=== PATIENT | male | born 1935 | race Caucasian/White ===

== ENCOUNTER 2017-02-17 10:57 | Observation (INO) ==
--- NOTE | 2017-02-17 11:39 | Emergency Department Note ---
Disposition Clinical Impression: MORA (dyspnea on exertion), Atrial fibrillation with RVR, History of pulmonary fibrosis Right lower lobe pneumonia Qualifiers: Pneumonia type: due to unspecified organism Qualified Code(s): J18.1 - Lobar pneumonia, unspecified organism Sepsis Qualifiers: Sepsis type: sepsis due to unspecified organism Qualified Code(s): A41.9 - Sepsis, unspecified organism Disposition: Admitted As Inpatient Condition: Fair Time of Disposition: 15:47 SOB HPI - General Chief Complaint: ED Shortness of Breath/Dyspnea Stated Complaint: Fever, cough, Time Seen by Provider: 02/17/17 11:11 Source: patient, family Limitations: no limitations Nursing Notes Reviewed: Yes Vital Signs Reviewed: Yes - History of Present Illness Patient's a 81-year-old male complains of acute onset of cough congestion times a week with worsening dyspnea on exertion and hypoxia with exertion. Patient has a history of pulmonary fibrosis, bladder cancer, prostate cancer status post prostatectomy. Patient's eyes DrHeidi Resendiz 2 days ago was placed on levofloxacin as taken 2 doses past 2 days but feels worse today. Patient states his O2 sats dropping to 84% if he is off his oxygen when he tries to move around. Patient states had to increase his oxygen from 2 L 3 L to maintain O2 sats at 92-94%. Patient reports having fevers of 102 degrees Fahrenheit. Patient states had fever this morning but took Advil. No recent surgeries or significant illnesses or hospitalizations within the past 6 months - Related Data Home Medications Medication Instructions Recorded Confirmed Aspirin Enteric Coated [Aspirin EC] 81 mg PO DAILY 02/17/17 02/17/17 Atenolol [Tenormin] 25 mg PO BID 02/17/17 02/17/17 Erythromycin OPTH Oint 1 appl OP QID 02/17/17 02/17/17 Ibuprofen [Advil] 200 mg PO Q6H PRN 02/17/17 02/17/17 Levofloxacin [Levaquin] 750 mg PO DAILY 02/17/17 02/17/17 Omeprazole [PriLOSEC] 20 mg PO DAILY 02/17/17 02/17/17 Oxygen 3 l NS AD 02/17/17 02/17/17 Sodium Chloride 5% OPTH Oint 1 appl OP HS 02/17/17 02/17/17 [[id number]] Allergies Allergy/AdvReac Type Severity Reaction Status Date / Time Sulfa (Sulfonamide Allergy Anaphylaxis Verified 02/17/17 11:03 Antibiotics) vancomycin Allergy Anaphylaxis Verified 02/17/17 11:03 metoprolol AdvReac See Verified 02/17/17 16:48 Comments All systems ED: reviewed and negative except as stated. Constitutional: Reports: fever Eyes: Denies: eye pain, vision change ENT ED: Reports: congestion Cardiovascular: Reports: chest pain (With coughing) Respiratory: Reports: cough, sputum production Gastrointestinal: Reports: nausea, vomiting. Denies: abdominal pain, diarrhea Genitourinary: Denies: urgency, dysuria, frequency, hematuria Musculoskeletal: Denies: back pain Neurological: Denies: confusion Endocrine: Reports: fatigue Past Medical History - Past Medical History Attestation: Yes The following information was validated with the patient. Source: patient Medical history: Reports: cancer (Prostate and bladder), other - Social History Smoking Status: Never smoker Smokeless Tobacco Status: No Alcohol use: Reports: none Drug use: Reports: none Physical Exam - General Limitations: no limitations General appearance: alert, in no apparent distress - Head Head exam: atraumatic, normocephalic, normal inspection - Eye Eye exam: Present: normal appearance (Right eye normal appearing, left eye abnormal. Patient blind in left eye), EOMI. Absent: PERRL, scleral icterus, conjunctival injection, nystagmus - ENT ENT exam: normal exam, normal oropharynx, mucous membranes dry - Neck Neck exam: Present: normal inspection, full ROM, trachea midline. Absent: tenderness, meningismus, lymphadenopathy - Chest Chest inspection: Present: normal inspection, symmetric chest wall rise. Absent : tenderness - Respiratory Respiratory exam: Present: wheezes, other (Bilateral lower lung jean sound like Velcro coming apart). Absent: normal lung sounds bilaterally, respiratory distress - Cardiovascular Cardiovascular exam: Present: tachycardia, irregular rhythm - Abdominal Exam Abdominal exam: Present: soft, Non-Tender. Absent: distention, guarding, rebound, rigidity - Extremities Exam Extremities exam: Present: normal inspection, full ROM, normal capillary refill. Absent: tenderness, pedal edema - Back Exam Back exam: Present: normal inspection, full ROM, paraspinal tenderness (Lower lumbar paraspinal ). Absent: tenderness, CVA tenderness (R), CVA tenderness (L) - Neurological Exam Neurological exam: Present: alert, oriented X3, CN II-XII intact. Absent: motor sensory deficit - Psychiatric Psychiatric exam: Present: normal affect - Skin Skin exam: Present: warm, dry, intact, normal color Course - Reevaluation(s) Reevaluation #1: Assessment: Sepsis secondary to pneumonia, exacerbation of pulmonary fibrosis, ACS/MO, PE. Plan: Sepsis workup, cardiac workup. Time: 11:12 Reevaluation #2: Patient received DuoNeb therapy and has improved lung sounds still has velcro sounding lower lung jean. Time: 11:40 Reevaluation #3: Patient reports that he is comfortable right now. Awaiting lab results Time: 12:18 Additional Reevaluation(s): 1300 hrs: Cultures have been drawn and patient is started on Zosyn and levofloxacin. 1300: Patient sent for CTA to assess for pulmonary embolism. 1440hrs: CTA negative for PE. Patient took his home medications morning and presented with a normal heart rate but progressed into A. fib RVR. Patient's heart rate came down to 110 on its own. Plan to monitor patient's heart rate before adding any medications since patient currently asymptomatic and may just be a byproduct of his DuoNeb therapy. 1504: Patient's heart rate increasing. Spoke to hospitalist Dr. Dueñas recommended during conversation for admittance given multiple doses of medication. I ordered 25 mg atenolol. After seeing the patient Dr. Dueñas asked to start patient on Lopressor 5 mg as his heart rate went up during her assessment into the 130s. Switched to atenolol for Lopressor. Patient states that he had an adverse reaction of uncontrolled heart rate after taking Lopressor. Plan to give patient Cardizem instead 20 mg IV. 1610 hrs.: Patient's heart rate returned to normal rate before administration of Cardizem. Will hold Cardizem Patient currently has no complaints. - Consultations Consultation #1: Dr. Dueñas has accepted for admission 1504 hrs Time: 15:04 Vital Signs Temperature 98.4 F 02/17/17 11:03 Pulse Rate 88 02/17/17 11:03 Respiratory Rate 16 02/17/17 11:03 Blood Pressure 97/61 02/17/17 11:03 O2 Sat by Pulse Oximetry 94 02/17/17 11:03 Temperature 98.4 F 02/17/17 11:03 Pulse Rate 85 02/17/17 15:57 Respiratory Rate 18 02/17/17 16:39 Blood Pressure 134/71 02/17/17 16:39 O2 Sat by Pulse Oximetry 97 02/17/17 15:57 Oxygen Delivery Oxygen Delivery Nasal Cannula Shortness of Breath/Dyspnea - Medical Records Medical records reviewed: Yes I reviewed the patient's medical records. - Lab Data Lab results reviewed: Yes I reviewed the patient's lab results. Lab results narrative: Short CBC 02/17/17 Range/Units 11:34 WBC 7.6 (4.3-11.1) K/mcL Hgb 15.5 (12.9-16.9) g/dL Hct 46.7 (37.5-50.1) % Plt Count 182 (140-400) K/mcL Neutrophils # 6.0 (1.6-8.9) K/mcL BMP 02/17/17 Range/Units 11:34 Sodium 136 (136-145) mEq/L Potassium 3.7 (3.5-4.5) mEq/L Chloride 100 (98-109) mEq/L Carbon Dioxide 27 (19-29) mEq/L BUN 25 (8-26) mg/dL Creatinine 1.15 (0.72-1.25) mg/dL Glucose 123 H (70-99) mg/dL Calcium 9.1 (8.6-10.8) mg/dL Cardiac Enzymes 02/17/17 Range/Units 11:34 Troponin I 0.02 (0-0.03) ng/mL Liver Function 02/17/17 Range/Units 11:34 Total Bilirubin 0.7 (0.2-1.2) mg/dL Direct Bilirubin 0.3 (0.0-0.5) mg/dL AST 33 (5-34) Units/L ALT 22 (0-55) Units/L Alkaline Phosphatase 63 (38-126) Units/L Albumin 3.9 (3.5-5.0) g/dL Urine 02/17/17 Range/Units 12:09 Urine Color Yellow (Yellow) Urine Clarity Cloudy A (Clear) Urine pH 6.0 (5.0-8.0) pH Units Ur Specific [place] 1.028 H (1.010-1.025) Urine Protein 30 H (Neg-Trace) mg/dL Urine Glucose (UA) Normal (Normal) mg/dL Result diagrams: 02/17/17 11:34 02/17/17 11:34 Lab Results 02/17/17 02/17/17 02/17/17 Range/Units 11:34 11:34 11:34 WBC 7.6 (4.3-11.1) K/mcL RBC 5.17 (4.19-5.50) M/mcL Hgb 15.5 (12.9-16.9) g/dL Hct 46.7 (37.5-50.1) % MCV 90.3 (83.0-100.0) fL MCH 30.0 (28.0-33.3) pg MCHC 33.2 (31.6-35.5) g/dL RDW 12.9 (11.5-14.5) % Plt Count 182 (140-400) K/mcL MPV 9.1 L (9.4-12.4) fL Immature Gran % 0.3 (0-4) % Seg Neutrophils % 78.2 % Lymphocytes % 7.8 % Monocytes % 12.9 % Eosinophils % 0.5 % Basophils % 0.3 % Neutrophils # 6.0 (1.6-8.9) K/mcL Lymphocytes # 0.6 (0.6-4.6) K/mcL Monocytes # 1.0 (0.0-1.3) K/mcL Eosinophils # 0.0 (0.0-0.6) K/mcL Basophils # 0.0 (0.0-0.2) K/mcL PT 13.5 H (9.4-12.1) Seconds INR 1.2 APTT 29.3 (26.0-36.0) Seconds ABG pH (7.32-7.45) pH Units ABG pCO2 (35-45) mmHg ABG pO2 (85-104) mmHg ABG HCO3 (21-27) mEQ/L ABG Total CO2 (20-26) mEq/L ABG O2 Saturation (95-98) % ABG Base Excess (-2.0 to 3.0) mEq/L Blood Gas Modality Inspired O2 % Sodium 136 (136-145) mEq/L Potassium 3.7 (3.5-4.5) mEq/L Chloride 100 (98-109) mEq/L Carbon Dioxide 27 (19-29) mEq/L BUN 25 (8-26) mg/dL Creatinine 1.15 (0.72-1.25) mg/dL Est GFR ( Amer) > 60 (> 60) Est GFR (Non-Af Amer) > 60 (> 60) BUN/Creatinine Ratio 22 (6-26) Glucose 123 H (70-99) mg/dL Calculated Osmolality 288 (280-300) Lactic Acid (0.5-2.2) mmol/L Calcium 9.1 (8.6-10.8) mg/dL Phosphorus 2.6 (2.3-4.7) mg/dL Magnesium 1.9 (1.6-2.6) mg/dL Total Bilirubin 0.7 (0.2-1.2) mg/dL Direct Bilirubin 0.3 (0.0-0.5) mg/dL Indirect Bilirubin 0.4 (0.0-1.2) mg/dL AST 33 (5-34) Units/L ALT 22 (0-55) Units/L Alkaline Phosphatase 63 (38-126) Units/L Troponin I (0-0.03) ng/mL B-Natriuretic Peptide (0-100) pg/mL Serum Total Protein 7.9 (6.0-8.3) g/dL Albumin 3.9 (3.5-5.0) g/dL Globulin 4.0 H (2.4-3.5) g/dL Albumin/Globulin Ratio 1.0 L (1.1-2.2) Urine Color (Yellow) Urine Clarity (Clear) Urine pH (5.0-8.0) pH Units Ur Specific [place] (1.010-1.025) Urine Protein (Neg-Trace) mg/dL Urine Glucose (UA) (Normal) mg/dL Urine Ketones (Negative) mg/dL Urine Blood (Negative) Urine Nitrite (Negative) Urine Bilirubin (Negative) Urine Urobilinogen (Normal) mg/dL Ur Leukocyte Esterase (Negative) Urine Microscopic RBC (0-3) per hpf Urine Microscopic WBC (0-3) per hpf Ur Squamous Epith Cells (None-Few) per lpf Urine Bacteria (None-Few) per hpf Hyaline Casts (None-Few) per lpf Ur Culture Indicated? (NO) 02/17/17 02/17/17 02/17/17 Range/Units 11:34 11:34 11:34 WBC (4.3-11.1) K/mcL RBC (4.19-5.50) M/mcL Hgb (12.9-16.9) g/dL Hct (37.5-50.1) % MCV (83.0-100.0) fL MCH (28.0-33.3) pg MCHC (31.6-35.5) g/dL RDW (11.5-14.5) % Plt Count (140-400) K/mcL MPV (9.4-12.4) fL Immature Gran % (0-4) % Seg Neutrophils % % Lymphocytes % % Monocytes % % Eosinophils % % Basophils % % Neutrophils # (1.6-8.9) K/mcL Lymphocytes # (0.6-4.6) K/mcL Monocytes # (0.0-1.3) K/mcL Eosinophils # (0.0-0.6) K/mcL Basophils # (0.0-0.2) K/mcL PT (9.4-12.1) Seconds INR APTT (26.0-36.0) Seconds ABG pH (7.32-7.45) pH Units ABG pCO2 (35-45) mmHg ABG pO2 (85-104) mmHg ABG HCO3 (21-27) mEQ/L ABG Total CO2 (20-26) mEq/L ABG O2 Saturation (95-98) % ABG Base Excess (-2.0 to 3.0) mEq/L Blood Gas Modality Inspired O2 % Sodium (136-145) mEq/L Potassium (3.5-4.5) mEq/L Chloride (98-109) mEq/L Carbon Dioxide (19-29) mEq/L BUN (8-26) mg/dL Creatinine (0.72-1.25) mg/dL Est GFR ( Amer) (> 60) Est GFR (Non-Af Amer) (> 60) BUN/Creatinine Ratio (6-26) Glucose (70-99) mg/dL Calculated Osmolality (280-300) Lactic Acid 2.1 (0.5-2.2) mmol/L Calcium (8.6-10.8) mg/dL Phosphorus (2.3-4.7) mg/dL Magnesium (1.6-2.6) mg/dL Total Bilirubin (0.2-1.2) mg/dL Direct Bilirubin (0.0-0.5) mg/dL Indirect Bilirubin (0.0-1.2) mg/dL AST (5-34) Units/L ALT (0-55) Units/L Alkaline Phosphatase (38-126) Units/L Troponin I 0.02 (0-0.03) ng/mL B-Natriuretic Peptide 68 (0-100) pg/mL Serum Total Protein (6.0-8.3) g/dL Albumin (3.5-5.0) g/dL Globulin (2.4-3.5) g/dL Albumin/Globulin Ratio (1.1-2.2) Urine Color (Yellow) Urine Clarity (Clear) Urine pH (5.0-8.0) pH Units Ur Specific [place] (1.010-1.025) Urine Protein (Neg-Trace) mg/dL Urine Glucose (UA) (Normal) mg/dL Urine Ketones (Negative) mg/dL Urine Blood (Negative) Urine Nitrite (Negative) Urine Bilirubin (Negative) Urine Urobilinogen (Normal) mg/dL Ur Leukocyte Esterase (Negative) Urine Microscopic RBC (0-3) per hpf Urine Microscopic WBC (0-3) per hpf Ur Squamous Epith Cells (None-Few) per lpf Urine Bacteria (None-Few) per hpf Hyaline Casts (None-Few) per lpf Ur Culture Indicated? (NO) 02/17/17 02/17/17 02/17/17 Range/Units 12:09 12:10 13:16 WBC (4.3-11.1) K/mcL RBC (4.19-5.50) M/mcL Hgb (12.9-16.9) g/dL Hct (37.5-50.1) % MCV (83.0-100.0) fL MCH (28.0-33.3) pg MCHC (31.6-35.5) g/dL RDW (11.5-14.5) % Plt Count (140-400) K/mcL MPV (9.4-12.4) fL Immature Gran % (0-4) % Seg Neutrophils % % Lymphocytes % % Monocytes % % Eosinophils % % Basophils % % Neutrophils # (1.6-8.9) K/mcL Lymphocytes # (0.6-4.6) K/mcL Monocytes # (0.0-1.3) K/mcL Eosinophils # (0.0-0.6) K/mcL Basophils # (0.0-0.2) K/mcL PT (9.4-12.1) Seconds INR APTT (26.0-36.0) Seconds ABG pH 7.45 (7.32-7.45) pH Units ABG pCO2 38 (35-45) mmHg ABG pO2 91 (85-104) mmHg ABG HCO3 26.4 (21-27) mEQ/L ABG Total CO2 27.6 H (20-26) mEq/L ABG O2 Saturation 97 (95-98) % ABG Base Excess 2.4 (-2.0 to 3.0) mEq/L Blood Gas Modality [place] Inspired O2 30 % Sodium (136-145) mEq/L Potassium (3.5-4.5) mEq/L Chloride (98-109) mEq/L Carbon Dioxide (19-29) mEq/L BUN (8-26) mg/dL Creatinine (0.72-1.25) mg/dL Est GFR ( Amer) (> 60) Est GFR (Non-Af Amer) (> 60) BUN/Creatinine Ratio (6-26) Glucose (70-99) mg/dL Calculated Osmolality (280-300) Lactic Acid 2.4 H (0.5-2.2) mmol/L Calcium (8.6-10.8) mg/dL Phosphorus (2.3-4.7) mg/dL Magnesium (1.6-2.6) mg/dL Total Bilirubin (0.2-1.2) mg/dL Direct Bilirubin (0.0-0.5) mg/dL Indirect Bilirubin (0.0-1.2) mg/dL AST (5-34) Units/L ALT (0-55) Units/L Alkaline Phosphatase (38-126) Units/L Troponin I (0-0.03) ng/mL B-Natriuretic Peptide (0-100) pg/mL Serum Total Protein (6.0-8.3) g/dL Albumin (3.5-5.0) g/dL Globulin (2.4-3.5) g/dL Albumin/Globulin Ratio (1.1-2.2) Urine Color Yellow (Yellow) Urine Clarity Cloudy A (Clear) Urine pH 6.0 (5.0-8.0) pH Units Ur Specific [place] 1.028 H (1.010-1.025) Urine Protein 30 H (Neg-Trace) mg/dL Urine Glucose (UA) Normal (Normal) mg/dL Urine Ketones Negative (Negative) mg/dL Urine Blood Small H (Negative) Urine Nitrite Negative (Negative) Urine Bilirubin Negative (Negative) Urine Urobilinogen Normal (Normal) mg/dL Ur Leukocyte Esterase Negative (Negative) Urine Microscopic RBC 3-5 H (0-3) per hpf Urine Microscopic WBC 0-3 (0-3) per hpf Ur Squamous Epith Cells Many H (None-Few) per lpf Urine Bacteria None Seen (None-Few) per hpf Hyaline Casts None Seen (None-Few) per lpf Ur Culture Indicated? NO (NO) - Radiology Data Radiology results reviewed: Yes I reviewed the patient's radiology results. - EKG Data EKG attestation: Yes I reviewed and interpreted this EKG. EKG results narrative: EKG taken 02/17/2017 at 1257 hrs. shows a A. fib RVR at a rate of 10 8 bpm. Previous EKG taken 05/29/2015 shows sinus rhythm with no acute ST elevations or depressions in leads. Attestation Statement - Attestation Attestation: I examined this patient and my medical decision-making was reviewed with the SOFTWARE TEST AUTOMATION ENGINEER/PA/Advanced Practice Nurse/Resident Physician. I agree with the documented findings, disposition and treatment plan as described except to the extent set forth below. Emergency Department not feeling well. Cough and short of breath. Patient has pulmonary fibrosis. He saw his doctor couple days ago and has taken 2 doses of Levaquin. States she has had a fever 101-102. They checked his oxygen saturation at home and it was low. On examination he sitting up in bed in no acute distress. Lungs with diffuse crackles.. Labs chest x-ray antibiotic. Septic workup.
[2017-02-17 11:44] LABS: Basophils % 0.3 %; Eosinophils % 0.5 %; Hematocrit 46.7 % (37.5-50.1); Hemoglobin 15.5 g/dL (12.9-16.9); Immature Granulocytes % 0.3 % (0-4); Lymphocytes # 0.6 K/mcL (0.6-4.6); Lymphocytes % 7.8 %; Mean Corpuscular HGB Conc 33.2 g/dL (31.6-35.5); Mean Corpuscular Volume 90.3 fL (83.0-100.0); Mean Platelet Volume 9.1 fL (9.4-12.4); Monocytes % 12.9 %; Platelet Count 182 K/mcL (140-400); Red Blood Count 5.17 M/mcL (4.19-5.50); Red Cell Distribution Width 12.9 % (11.5-14.5); Segmented Neutrophils % 78.2 %
[2017-02-17 11:49] LABS: INR 1.2; Prothrombin Time 13.5 Seconds (9.4-12.1)
[2017-02-17] MEDS ORDERED: methylPREDNISolone 125 MG/2 ML VIAL IVP ONE (11:50)
[2017-02-17] MEDS ORDERED: Ipratropium/Albuterol Neb 3 ML IH ONE (11:50)
[2017-02-17 11:52] LABS: Activated Partial Thrombo Time 29.3 Seconds (26.0-36.0)
[2017-02-17] MEDS ORDERED: Levofloxacin 750 MG/150 ML 750 MG/150 ML BAG IVPB ONE (11:52)
[2017-02-17] MEDS ORDERED: Piperacillin/Tazobactam 3.375 GM in D5% in Water (Mini-Bag+) 100 ML IVPB ONE (11:52)
[2017-02-17 12:00] LABS: Alanine Aminotransferase 22 Units/L (0-55); Albumin 3.9 g/dL (3.5-5.0); Alkaline Phosphatase 63 Units/L (38-126); Aspartate Amino Transferase 33 Units/L (5-34); BUN/Creatinine Ratio 22 (6-26); Bilirubin,Direct 0.3 mg/dL (0.0-0.5); Bilirubin,Indirect 0.4 mg/dL (0.0-1.2); Bilirubin,Total 0.7 mg/dL (0.2-1.2); Blood Urea Nitrogen 25 mg/dL (8-26); Calcium 9.1 mg/dL (8.6-10.8); Carbon Dioxide 27 mEq/L (19-29); Chloride 100 mEq/L (98-109); Glucose 123 mg/dL (70-99); Magnesium 1.9 mg/dL (1.6-2.6); Osmolality,Calculated 288 (280-300); Phosphorous 2.6 mg/dL (2.3-4.7); Potassium 3.7 mEq/L (3.5-4.5); Sodium 136 mEq/L (136-145); Total Protein 7.9 g/dL (6.0-8.3); eGFR For African Americans > 60 (> 60); eGFR For Non-African Americans > 60 (> 60)
[2017-02-17 12:19] LABS: Bilirubin,Urine Negative (Negative); Blood,Urine Small (Negative); Clarity,Urine Cloudy (Clear); Color,Urine Yellow (Yellow); Glucose,Urine (UA) Normal (Normal); Ketones,Urine Negative (Negative); Leukocyte Esterase,Urine Negative (Negative); Nitrite,Urine Negative (Negative); Protein,Urine 30 mg/dL (Neg-Trace); Specific Gravity,Urine 1.028 (1.010-1.025); Urobilinogen,Urine Normal (Normal)
[2017-02-17 12:21] LABS: Bacteria,Urine None Seen per hpf (None-Few); Hyaline Casts,Urine None Seen per lpf (None-Few); Squamous Epithelial Cell,Urine Many per lpf (None-Few); WBC,Urine 0-3 per hpf (0-3)
[2017-02-17 12:25] LABS: ABG Base Excess 2.4 mEq/L (-2.0 to 3.0); ABG HCO3 26.4 mEQ/L (21-27); ABG Oxygen Saturation 97 % (95-98); ABG PCO2 38 mmHg (35-45); ABG PH 7.45 pH Units (7.32-7.45); ABG PO2 91 mmHg (85-104); ABG TCO2 27.6 mEq/L (20-26); Blood Gas FiO2 30 %
[2017-02-17] MEDS ORDERED: Aspirin 325 MG TABLET PO ONE (12:45)
[2017-02-17] MEDS: 0.9 % Sodium Chloride 1,000 ML IVC SCH ×3 (12:48→18:17)
[2017-02-17] MEDS ORDERED: *HR* Metoprolol 5 MG/5 ML VIAL IVP PRN (15:33)
[2017-02-17] MEDS ORDERED: Naloxone 0.4 MG/ML INJ IVP PRN (15:54)
[2017-02-17] MEDS ORDERED: *HR* HYDROcodone/Acet 5/325 mg TABLET PO PRN (15:59)
[2017-02-17] MEDS ORDERED: *HR* Morphine 2 MG/ML SYRINGE IVP PRN (15:59)
[2017-02-17] MEDS ORDERED: Acetaminophen 325 MG TABLET PO PRN (15:59)
[2017-02-17] MEDS ORDERED: Ondansetron 4 MG/2 ML VIAL IVP PRN (15:59)
--- NOTE | 2017-02-17 16:09 | Internal Med History&Physical ---
Date of Encounter: 02/17/17 Time of Encounter: 16:09 Assessment and Plan (1) Acute and chronic respiratory failure with hypoxia Current visit: Yes Status: Acute Acute on chronic hypoxic respiratory failure secondary to ILD exacerbation and suspected superimposed community acquired pneumonia, continue O2 supplement, continuous pulse Ox (2) ILD (interstitial lung disease) Current visit: Yes Status: Acute ILD exacerbation: patient with known pulmonary fibrosis, Cause of exacerbation at this time may be his pneumonia or a progression of his disease. Management as in Pneumonia and Acute resp failure as above. Patient is DNR/DNI (3) Atrial fibrillation with RVR Current visit: Yes Status: Acute Afib: With RVR possibly secondary to Hypoxia, and multiple albuterol treatments , give gentle hydration and obtain ECHO. Continue home meds atenolol and IV lopresssor for HR >110, may titrate atenolol up as needed Continue ASA (4) Right lower lobe pneumonia Current visit: Yes Status: Acute Organism unknown, patient received Zyvox, Zosyn and Levaquin in ED. Patient has no risk factors for HCAP. He is not septic. Will de-escalate antibiotics and treat with Ceftriaxone and Azithromycin IV for now. Will send sputum cultures, will send resp infectious panel, will send urine legionella and urine strep Ag. Duonebs q4h, continue solumedrol 40mg q6h. Qualifiers: Pneumonia type: due to unspecified organism Qualified Code(s): J18.1 - Lobar pneumonia, unspecified organism (5) Lactic acidosis Current visit: Yes Status: Acute Lactic acidosis from multiple albuterol treatments: Give IVF, repeat lactate, patient is not septic at this time (6) Abnormal TSH Current visit: Yes Status: Acute Low TSH: No hx of thyroid disease, will recommend to repeat after acute illness is treated or as out-patient. 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 He reports history of cough with yellowish phlegm and a fever of 102 at home, he had presented to his PCP two days ago and was prescribed Levofloxacin po. He presented to ER because he wasnt feeling any improvement and his dyspnea continued to worsen. He denies sore throat, denies rhinorrhea, and denies sick contact or recent travels. He denies CP, palpitations or leg swelling, he reports his HR has been controlled on his home medication prior to presentation to ER and administration of duonebs. He has been needing more O2 at home, he typically wears 2L/minutes but has had to be using ~3-4L .minutes. He denies weight loss, or change in appetite. He has no recent hospitalization. 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 He quit smoking >30years ago ROS as stated in HPI Patient has a living will and is DNR/DNI Past Med Surg Social Fam HX - Past Medical History Medical history: cancer (Prostate and bladder), other - Social History Smoking Status: Never smoker Smokeless Tobacco Status: No Alcohol use: none Drug use: none Internal Medicine - H&P: Meds Aspirin Enteric Coated [Aspirin EC] 81 mg PO DAILY 02/17/17 [History] Atenolol [Tenormin] 25 mg PO BID 02/17/17 [History] Erythromycin OPTH Oint 1 appl OP QID 02/17/17 [History] Ibuprofen [Advil] 200 mg PO Q6H PRN 02/17/17 [History] Levofloxacin [Levaquin] 750 mg PO DAILY 02/17/17 [History] Omeprazole [PriLOSEC] 20 mg PO DAILY 02/17/17 [History] Oxygen 3 l NS AD 02/17/17 [History] Sodium Chloride 5% OPTH Oint [[id number]] 1 appl OP HS 02/17/17 [History] Allergies Sulfa (Sulfonamide Antibiotics) Allergy (Verified 02/17/17 11:03) Anaphylaxis vancomycin Allergy (Verified 02/17/17 11:03) Anaphylaxis metoprolol Adverse Reaction (Verified 02/17/17 16:48) See Comments patient states increased heart rate and increased blood pressure All Systems PM: A 10-system review of systems was performed and is negative for pertinent findings except as documented above in the HPI. - Constitutional Constitutional: as per HPI - EENT Eyes: as per HPI Ears: as per HPI Nose, mouth and throat: as per HPI - Breasts Breasts: as per HPI - Cardiovascular Cardiovascular ROS IM: as per HPI - Respiratory Respiratory: as per HPI - Gastrointestinal Gastrointestinal: as per HPI - Genitourinary Genitourinary ROS male: as per HPI - Musculoskeletal Musculoskeletal ROS IM: as per HPI - Integumentary Integumentary IM: as per HPI - Neurological Neurological ROS: as per HPI - Hematologic/Lymphatic Hematologic/Lymphatic: as per HPI - Constitutional Vitals: Temp Pulse Resp BP Pulse Ox 98.4 F 85 18 134/71 97 02/17/17 11:03 02/17/17 15:57 02/17/17 15:57 02/17/17 15:57 02/17/17 15:57 Physical Exam VS: Temperature 98, heart rate 135, blood pressure 137/83, respiratory rate 15 , O2 sats 93% on 4L O2 by nasal cannula Alert and oriented x3, cooperative, in no apparent distress, speaks full sentences. HEENT: Moist oral mucosa, R corneal opacity Heart: Irregularly irregular, tachycardia, no murmurs appreciated Chest: Diffuse fine crackles noted on auscultation bilaterally with right more than left. Abdomen: Soft, non-tender to palpation. Active bowel sounds. Extremities: No edema Internal Med - H&P Results - Labs CBC & Chem 7: 02/17/17 11:34 02/17/17 11:34 Labs: Short CBC 02/17/17 Range/Units 11:34 WBC 7.6 (4.3-11.1) K/mcL Hgb 15.5 (12.9-16.9) g/dL Hct 46.7 (37.5-50.1) % Plt Count 182 (140-400) K/mcL Neutrophils # 6.0 (1.6-8.9) K/mcL BMP 02/17/17 11:34 Sodium 136 Potassium 3.7 Chloride 100 Carbon Dioxide 27 BUN 25 Creatinine 1.15 Glucose 123 H Calcium 9.1 Cardiac Enzymes 02/17/17 Range/Units 11:34 Troponin I 0.02 (0-0.03) ng/mL Liver Function 02/17/17 Range/Units 11:34 Total Bilirubin 0.7 (0.2-1.2) mg/dL Direct Bilirubin 0.3 (0.0-0.5) mg/dL AST 33 (5-34) Units/L ALT 22 (0-55) Units/L Alkaline Phosphatase 63 (38-126) Units/L Albumin 3.9 (3.5-5.0) g/dL Urine 02/17/17 Range/Units 12:09 Urine Color Yellow (Yellow) Urine Clarity Cloudy A (Clear) Urine pH 6.0 (5.0-8.0) pH Units Ur Specific [place] 1.028 H (1.010-1.025) Urine Protein 30 H (Neg-Trace) mg/dL Urine Glucose (UA) Normal (Normal) mg/dL Labs and Imaging reviewed: CBC/Coag panel, Chem unremarkable, hyperglycemia, possibly from steroids, lactic acidosis, lactate 2.4, LFT unremarkable, TSH low at 1.0. UA is unremarkable. CXR with chronic ILD features and possible superimposed pneumonia. CTA noted. EKG afib . - ABG Interpretation ABG results: 02/17/17 12:10 ABG pH 7.45 ABG pCO2 38 ABG pO2 91 ABG HCO3 26.4 ABG Total CO2 27.6 H ABG O2 Saturation 97 ABG Base Excess 2.4 - Impressions ITS Impressions Chest CTA 02/17/17 12:57 IMPRESSION: 1. No pulmonary embolus within the limitations of this exam. 2. 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 This has slightly progressed since the prior exam. 3. Grossly stable mediastinal hilar adenopathy, likely reactive. D/ / 02/17/2017 14:47:57 Renata Clemons MD / long Interpreting Provider: Renata Clemons MD Chest X-Ray 02/17/17 12:57 IMPRESSION: Fibrotic changes in the lung bases. Possible superimposed infiltrate in the right lung base. Follow up to resolution is suggested. D/ / 02/17/2017 13:25:22 Lynn Correia MD / Waleska Lerma Interpreting Provider: Lynn Correia MD
[2017-02-17] MEDS: Erythromycin OPTH Oint RIGHT EYE SCH ×2 (17:49→19:57)
[2017-02-17 17:58] LABS: Adenovirus Not Detected (Not Detect); Bordetella Pertussis Not Detected (Not Detect); Chlamydophila pneumoniae Not Detected (Not Detect); Coronavirus 229E Not Detected (Not Detect); Coronavirus HKU1 Not Detected (Not Detect); Coronavirus NL63 Not Detected (Not Detect); Coronavirus OC43 Not Detected (Not Detect); Human Metapneumovirus Not Detected (Not Detect); Human Rhinovirus/Enterovirus Not Detected (Not Detect); Influenza A Subtype 2009 H1 Not Detected (Not Detect); Influenza A Untypeable Not Detected (Not Detect); Influenza B ***DETECTED*** (Not Detect); Mycoplasma pneumoniae Not Detected (Not Detect); Parainfluenza Virus 1 Not Detected (Not Detect); Parainfluenza Virus 2 Not Detected (Not Detect); Parainfluenza Virus 3 Not Detected (Not Detect); Parainfluenza Virus 4 Not Detected (Not Detect); Respiratory Syncytial Virus Not Detected (Not Detect)
[2017-02-17] MEDS: Sodium Chloride 5% OPTH 3.5 GM TUBE OP SCH (19:57)
[2017-02-17] MEDS: Ipratropium/Albuterol Neb 3 ML IH SCH (20:34)
[2017-02-18] MEDS: Ipratropium/Albuterol Neb 3 ML IH SCH ×4 (04:15→22:40)
[2017-02-18 04:49] LABS: Hematocrit 41.2 % (37.5-50.1); Lymphocytes # 0.7 K/mcL (0.6-4.6); Lymphocytes % 16.7 %; Mean Corpuscular Hemoglobin 30.6 pg (28.0-33.3); Mean Platelet Volume 9.2 fL (9.4-12.4); Monocytes # 0.3 K/mcL (0.0-1.3); Monocytes % 6.7 %; Neutrophils # 3.2 K/mcL (1.6-8.9); Platelet Count 155 K/mcL (140-400); Red Blood Count 4.58 M/mcL (4.19-5.50); Segmented Neutrophils % 75.6 %
[2017-02-18 05:10] LABS: BUN/Creatinine Ratio 26 (6-26); Blood Urea Nitrogen 22 mg/dL (8-26); Calcium 8.1 mg/dL (8.6-10.8); Carbon Dioxide 18 mEq/L (19-29); Chloride 106 mEq/L (98-109); Glucose 169 mg/dL (70-99); Osmolality,Calculated 291 (280-300); Potassium 3.6 mEq/L (3.5-4.5); Sodium 137 mEq/L (136-145); eGFR For African Americans > 60 (> 60); eGFR For Non-African Americans > 60 (> 60)
[2017-02-18] MEDS ORDERED: Oseltamivir 6 MG/ML UDC PO SCH (09:00)
--- NOTE | 2017-02-18 09:47 | Internal Med Progress Note ---
<Rosa Lopez Alve - Last Filed: 02/18/17 15:31> Date of Encounter: 02/18/17 Time of Encounter: 09:00 - Assessment and plan (1) Acute and chronic respiratory failure with hypoxia Current Visit: Yes Status: Acute Assessment and plan: 02/17/2017 Acute on chronic hypoxic respiratory failure secondary to ILD exacerbation and suspected superimposed community acquired pneumonia, continue O2 supplement, continuous pulse Ox 02/18/2017 Respiratory failure with hypoxemia secondary to viral pneumonia due to Influenza B However cannot exclude pulmonary infiltrate as suggested on CXR Patient started on Tamiflu Patient was given Zosyn and Levaquin in ED Received Zyvox x 2 doses, discontinue Continue Zithromax (day#1), Rocephin (day#1) (2) Influenza B Current Visit: Yes Status: Acute Assessment and plan: Positive for Influenza B by PCR Started on Tamiflu Patient states that he did not have flu vaccine this year due to febrile episode following flu vaccine last year Monitor closely (3) ILD (interstitial lung disease) Current Visit: Yes Status: Acute Assessment and plan: 02/17/2017 ILD exacerbation: patient with known pulmonary fibrosis, Cause of exacerbation at this time may be his pneumonia or a progression of his disease. Management as in Pneumonia and Acute resp failure as above. Patient is DNR/DNI 02/18/17 CT demonstrates progression of ILD since 2014 Patient no longer follows with pulmonology (4) Atrial fibrillation with RVR Current Visit: Yes Status: Acute Assessment and plan: 02/17/2017 Afib: With RVR possibly secondary to Hypoxia, and multiple albuterol treatments , give gentle hydration and obtain ECHO. Continue home meds atenolol and IV lopresssor for HR >110, may titrate atenolol up as needed Continue ASA 02/18/17 Heart rate well-controlled at this time with HR 70s Continue BB (5) Right lower lobe pneumonia Current Visit: Yes Status: Acute Assessment and plan: 02/17/2017 Organism unknown, patient received Zyvox, Zosyn and Levaquin in ED. Patient has no risk factors for HCAP. He is not septic. Will de-escalate antibiotics and treat with Ceftriaxone and Azithromycin IV for now. Will send sputum cultures, will send resp infectious panel, will send urine legionella and urine strep Ag. Duonebs q4h, continue solumedrol 40mg q6h. 02/18/2017 Respiratory Infectious panel positive for Influenza B Sputum cultures, pending Will continue Ceftriaxone, Azithromycin Continue steroids, duonebs Qualifiers: Pneumonia type: due to unspecified organism Qualified Code(s): J18.1 - Lobar pneumonia, unspecified organism (6) Lactic acidosis Current Visit: Yes Status: Acute Assessment and plan: 02/17/2017 Lactic acidosis from multiple albuterol treatments: Give IVF, repeat lactate, patient is not septic at this time 02/18/2017 Patient with lactic acidosis on presentation He is not septic (7) Abnormal TSH Current Visit: Yes Status: Acute Assessment and plan: 02/17/2017 Low TSH: No hx of thyroid disease, will recommend to repeat after acute illness is treated or as out-patient. (8) DVT prophylaxis Current Visit: Yes Status: Acute Assessment and plan: Heparin SQ - Time Spent With Patient 25 - 35 minutes (25 minutes including time with patinet and time coordinating care) - Subjective Interval history: Patient is resting comfortably in bed at time of patient interview. He is currently requiring 2L of O2. Patient states that his current episode of dyspnea began last week. Patient noticed increased need for O2 at home. Patient states that he was placed on Levaquin last Saturday, February 08, 2017. - Constitutional Vitals: Temp Pulse Resp BP Pulse Ox 98.2 F 76 16 142/69 95 02/18/17 07:42 02/18/17 07:42 02/18/17 07:42 02/18/17 07:42 02/18/17 07:42 General appearance: Present: A&O X 3, answers questions appropriately - Head Head exam: Present: atraumatic, normocephalic - Eye Additional comments: Left eye with opacification of lens. 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 Right eye EOMI, sclera white. - Neck Neck exam general surgery: Present: supple, trachea midline. Absent: lymphadenopathy - Respiratory Respiratory exam: Present: rales (Coarse dry rales to bilateral lungs, most prominent in lung bases). Absent: accessory muscle use, rhonchi, wheezes - Cardiovascular Cardiovascular exam: Present: RRR, +S1, +S2. Absent: diastolic murmur, gallop, rubs, systolic murmur - GI/Abdominal GI/Abdominal exam: Present: normal bowel sounds, soft, no peritoneal signs. Absent: distended, tenderness - Extremities Exam Extremities exam: Present: warm, radial pulses palpable and symetrical. Absent : calf tenderness, cyanotic, pedal edema - Neurological Exam Neurological exam: Present: oriented X3, no focal deficits. Absent: pronater drift, facial droop, speech deficit - Skin Skin exam: Present: dry, intact Internal Medicine: Result - Labs CBC & Chem 7: 02/18/17 04:32 02/18/17 04:32 Labs: Short CBC 02/18/17 Range/Units 04:32 WBC 4.2 L (4.3-11.1) K/mcL Hgb 14.0 D (12.9-16.9) g/dL Hct 41.2 (37.5-50.1) % Plt Count 155 (140-400) K/mcL Neutrophils # 3.2 (1.6-8.9) K/mcL BMP 02/18/17 04:32 Sodium 137 Potassium 3.6 Chloride 106 Carbon Dioxide 18 L BUN 22 Creatinine 0.85 Glucose 169 H Calcium 8.1 L - ABG Interpretation ABG results: ABG ABG pH 7.45 pH Units (7.32-7.45) 02/17/17 12:10 ABG pCO2 38 mmHg (35-45) 02/17/17 12:10 ABG pO2 91 mmHg (85-104) 02/17/17 12:10 ABG O2 Saturation 97 % (95-98) 02/17/17 12:10 PT/INR, D-dimer PT 13.5 Seconds (9.4-12.1) H 02/17/17 11:34 - Impressions Chest CTA 02/17/17 12:57 IMPRESSION: 1. No pulmonary embolus within the limitations of this exam. 2. 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 This has slightly progressed since the prior exam. 3. Grossly stable mediastinal hilar adenopathy, likely reactive. D/ / 02/17/2017 14:47:57 Renata Clemons MD / long Interpreting Provider: Renata Clemons MD Chest X-Ray 02/17/17 12:57 IMPRESSION: Fibrotic changes in the lung bases. Possible superimposed infiltrate in the right lung base. Follow up to resolution is suggested. D/ / 02/17/2017 13:25:22 Lynn Correia MD / Waleska Lerma Interpreting Provider: Lynn Correia MD Consult Discharge Plan - Plan Referrals: Zeke Resendiz MD [Primary Care Provider] - <Shaun Ibrahim P - Last Filed: 02/18/17 19:03> Date of Encounter: 02/18/17 - Constitutional Vitals: Temp Pulse Resp BP Pulse Ox 98.2 F 85 18 136/80 93 02/18/17 15:00 02/18/17 15:00 02/18/17 16:33 02/18/17 16:33 02/18/17 16:33 Internal Medicine: Result - Labs CBC & Chem 7: 02/18/17 04:32 02/18/17 04:32 Labs: Short CBC 02/18/17 Range/Units 04:32 WBC 4.2 L (4.3-11.1) K/mcL Hgb 14.0 D (12.9-16.9) g/dL Hct 41.2 (37.5-50.1) % Plt Count 155 (140-400) K/mcL Neutrophils # 3.2 (1.6-8.9) K/mcL BMP 02/18/17 04:32 Sodium 137 Potassium 3.6 Chloride 106 Carbon Dioxide 18 L BUN 22 Creatinine 0.85 Glucose 169 H Calcium 8.1 L - ABG Interpretation ABG results: ABG ABG pH 7.45 pH Units (7.32-7.45) 02/17/17 12:10 ABG pCO2 38 mmHg (35-45) 02/17/17 12:10 ABG pO2 91 mmHg (85-104) 02/17/17 12:10 ABG O2 Saturation 97 % (95-98) 02/17/17 12:10 PT/INR, D-dimer PT 13.5 Seconds (9.4-12.1) H 02/17/17 11:34 - Attending Attestation I examined this patient and my medical decision-making was reviewed with the C 40A CREW CHIEF/PA/Advanced Practice Nurse/Resident Physician. I agree with the documented findings, disposition and treatment plan as described except to the extent set forth below.
[2017-02-18] MEDS: MethylPREDNISolone 40 MG/ML VIAL IVP SCH ×3 (09:59→20:41)
[2017-02-18] MEDS: Aspirin Enteric Coated 81 MG Tablet PO SCH (10:02)
[2017-02-18] MEDS: Erythromycin OPTH Oint RIGHT EYE SCH ×2 (10:07→12:55)
[2017-02-18] MEDS ORDERED: Azithromycin 500 MG in D5% in Water 250 ML IVPB SCH (17:00)
--- NOTE | 2017-02-18 17:47 | Electrocardiograph Report ---
[address] [address] Test Date: 2017-02-17 Pat Name: Simon Carpenter Department: 105 Room: [facility] Gender: M [employer]: SONG : 1935 Requested By: Anni See Order Number: [id number] Reading MD: Nando Richmond Measurements Intervals [place] Rate: 82 P: 8 WV: 167 QRS: -41 QRSD: 113 T: 60 QT: 357 QTc: 396 Interpretive Statements SINUS RHYTHM MARKED LEFT AXIS DEVIATION LEFT VENTRICULAR HYPERTROPHY AND ST-T CHANGE POSSIBLE ANTERIOR MYOCARDIAL INFARCTION Electronically Signed On 02-18-2017 17:45:27 EDT by Nando Richmond
--- NOTE | 2017-02-18 18:19 | Electrocardiograph Report ---
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
[2017-02-18] MEDS: *HR* Heparin 5,000 UNIT/ML VIAL SQ SCH (18:41)
[2017-02-18] MEDS: Erythromycin OPTH Oint LEFT EYE SCH ×2 (18:53→20:47)
[2017-02-18] MEDS: Sodium Chloride 5% OPTH 3.5 GM TUBE OP SCH (20:47)
[2017-02-19] MEDS: 0.9 % Sodium Chloride 1,000 ML IVC SCH ×3 (01:56→23:07)
[2017-02-19] MEDS: MethylPREDNISolone 40 MG/ML VIAL IVP SCH ×4 (03:28→21:32)
[2017-02-19] MEDS: Ipratropium/Albuterol Neb 3 ML IH SCH (04:14)
[2017-02-19] MEDS: *HR* Heparin 5,000 UNIT/ML VIAL SQ SCH ×2 (06:05→18:01)
[2017-02-19] MEDS: Aspirin Enteric Coated 81 MG Tablet PO SCH (09:16)
[2017-02-19] MEDS: Erythromycin OPTH Oint LEFT EYE SCH ×4 (09:18→21:31)
--- NOTE | 2017-02-19 09:20 | ECHO - Doppler Report ---
Echocardiogram Name: Simon Carpenter Date of Study: 02/18/2017 Date: 1935 Ht: 66.0 in Medical Record#: [id number] Age: 81 Wt: 161.0 lb Gender: Male BSA: 1.82 Order #: [id number] Location: [facility] Room #: 2NE35 Reading Physician: Aylin Grace DO Wet Process Technician: Ally Maher Ordering Physician: Larry Dueñas MD Primary Physician: Zeke Resendiz MD Indications: ILD w/worsening hypoxia, Afib w/RVR, Valvular disease Impressions: LVEF 55%. Normal left ventricular size and systolic function. Mild concentric hypertrophy of the left ventricle. There is evidence of mild diastolic dysfunction of the left ventricle. Borderline dilated RV with normal function. Mild aortic regurgitation. Doming of the anterior mitral valve leaflet with mild to moderate mitral regurgitation. Moderate tricuspid regurgitation. Moderate to severe pulmonary hypertension. Left Ventricular Wall Motion: Rest Echo Findings All wall segments showed normal motion. Findings: Study Quality * Technically adequate exam. ECG Findings * Normal sinus rhythm. Left Ventricle * Mild concentric left ventricular hypertrophy. * Normal LV chamber size, wall thickness and function. * Mild left ventricular diastolic dysfunction. * LVEF 55%. Aorta * Normally sized aortic root. Mitral Valve * No mitral stenosis. * Mildly calcified mitral valve leaflets. * Doming of the AMVL. * Mild-moderate mitral regurgitation. Aortic Valve * Trileaflet aortic valve. * Mildly calcified aortic valve leaflets. * Mild aortic regurgitation. * No aortic stenosis. Tricuspid Valve * Normal tricuspid valve structure. * Moderate tricuspid regurgitation. * Estimated RA pressure is 3 mmHg. * Estimated RVSP is 59 mmHg. * Moderate to severe pulmonary hypertension. Pulmonic Valve * Pulmonic valve is not well visualized. * No pulmonic stenosis. * Trace pulmonic regurgitation. Pulmonary Artery * Pulmonary artery not well visualized. Right Atrium * Normal right atrial size. Right Ventricle * Borderline dilated RV with normal function. Left Atrium * Moderately dilated left atrium. Interatrial Septum * No evidence of PFO by color Doppler. IVC * Normal IVC dimensions and inspiratory collapse. Pericardium * There is no pericardial effusion present. History Years 3 Packs 0.5 Valvular Disease 03/22/2015 a Previous Echo was performed. Measurements: BP: 136/ 80 2D Normal Values RVIDd: 2.90 cm <2.7 cm IVSd: 1.30 cm 0.6 - 1.0 cm LVIDd: 3.80 cm 3.7 - 5.6 cm LVPWd: 1.30 cm 0.6 - 1.1 cm LVIDs: 3.00 cm 1.5 - 3.6 cm AO: 2.90 cm < 4.0 cm LA: 4.00 cm 2.0 - 4.0cm %FS: 21.10 cm >25 % LA volume: 56 Mitral Valve Peak E:1.02 m/sec Peak A:1.01 m/sec E/A Ratio:1 Peak E' Lat Agusto:11.5 cm/s Peak E' Med Agusto:8.48 cm/s E/E' Lat Ratio:8.9 E/E' Med Ratio:12 Tricuspid Valve TV Regurg Peak Grad: 56.00mmHg TV Regurg Peak Agusto: 3.73m/sec Updated by Aylin Grace on 02/19/2017 9:14:30 AM electronically signed on 02/19/2017 9:16:23 AM with status of Final Wall Motion Golden: 1=Normal, 2=Hypokinesis, 3=Akinesis, 4=Dyskinesis, 5=Aneurysmal, 6=Hyperkinetic, X=Not Visualized (Blank)=Missing
--- NOTE | 2017-02-19 11:37 | Cardiology Consult Note ---
Date of Encounter: 02/19/17 Time of Encounter: 10:30 Assessment and Plan (1) Influenza B Current Visit: Yes Status: Acute Per cardiology: -Noted to be influenza B positive. -On albuterol nebulizer treatments. -Can consider changing nebulizers to xopenex due to tachycardia. -May be contributing to tachycardia. (SHRAVAN) (2) Tachycardia Current Visit: Yes Status: Acute Per cardiology: -Sinus tachycardia noted on telemetry with patient excertion. -Average HR previous 12 hours noted to be 81, frequent PVCs, occasional couplets noted, three triplet PVCs noted, frequent PACs noted. NO atrial fibrillation appreciated. -ECG 02/17/17 1121 with SR, incomplete LBBB, HR 82. Incomplete LBBB unchanged. -ECG 02/17/[address], HR 108, Frequent PACs, may represent multifocal atrial tachycardia. No atrial fibrillation appreciated. ECGs reviewed with Dr.Jennifer Richmond. -On atenolol 25mg BID. Cardizem drip ordered PRN per primary service, of note was not on cardizem drip at time of assessment. -Will discontinue cardizem drip order. -Will increase atenolol to 50mg BID. Will give 25mg now to total 50mg for this am. -Cardiology will sign off and will follow in outpatient setting. Follow up set. -Can consider decreasing atenolol dose once recovered from viral illness. (SHRAVAN) (3) History of pulmonary fibrosis Current Visit: Yes Status: Chronic Per cardiology: -Known history of pulmonary fibrosis. -On home O2. -May be contributing to tachycardia (SHRAVAN) Discussion w patient/family: The assessment and plan as outlined above was discussed with the patient and/or family members who expressed understanding and agreement. All questions were answered. Thank you for involving us in the care of your patient. Please call with any questions. Patient seen and examined with EDYTA Bartlett Discussed with Dr.Jennifer Richmond. History of Present Illness Consult date: 02/19/17 Requesting physician: Lan Montes Consult reason: tachycardia Chief complaint: shortness of breath History of present illness: Mr. Carpenter is a 81 year old male with a relevant past medical history of pulmonary fibrosis, barrets esophagus, GERD, hiatal hernia, bladder cancer, asbestos exposure, frequent PVCs. Patient presents to [facility] with complaints of increased shortness of breath. Patient states he was requiring more oxygen at home. Patient has pulmonary fibrosis and states he only uses O2 at 2LPM per nasal cannula as needed at home usually. Patient states over the last couple of weeks, he was requiring 3-4LPM per nasal cannula. Patient was noted to be influenza B positive. Patient was noted to be tachycardic and cardiology was consulted. Patient has a history of frequent PVCs and takes atenolol 25mg po BID at home. Patient states since influenza, he becomes tachycardic with movement. Patient states with rest, his heart rate is in the 60-70s. Patient denies chest pain. (SHRAVAN) Past Med Surg Social Fam HX - Past Medical History Attestation: Yes The following information was validated with the patient. Source: patient, old records reviewed Medical history: cancer, other - Past Surgical History Surgical History: prostatectomy - Social History Smoking Status: Never smoker Smokeless Tobacco Status: No Alcohol use: none Drug use: none - Family History Mother Adopted: No Living Status: Hx Family Cancer: Yes Medications and Allergies Aspirin Enteric Coated [Aspirin EC] 81 mg PO DAILY 02/17/17 [History] Atenolol [Tenormin] 25 mg PO BID 02/17/17 [History] Erythromycin OPTH Oint 1 appl OP QID 02/17/17 [History] Ibuprofen [Advil] 200 mg PO Q6H PRN 02/17/17 [History] Levofloxacin [Levaquin] 750 mg PO DAILY 02/17/17 [History] Omeprazole [PriLOSEC] 20 mg PO DAILY 02/17/17 [History] Oxygen 3 l NS AD 02/17/17 [History] Sodium Chloride 5% OPTH Oint [Jeannie-128] 1 appl OP HS 02/17/17 [History] Allergies Sulfa (Sulfonamide Antibiotics) Allergy (Verified 02/17/17 11:03) Anaphylaxis vancomycin Allergy (Verified 02/17/17 11:03) Anaphylaxis metoprolol Adverse Reaction (Verified 02/17/17 16:48) See Comments patient states increased heart rate and increased blood pressure All Systems Review: A 10-system review of systems was performed and is negative for pertinent findings except as documented above in the HPI. - Constitutional Constitutional: fatigue - Cardiovascular Cardiovascular: as per HPI, rapid heart rate - Respiratory Respiratory: cough, dyspnea Physical Examination Vital Signs, Last 4 Hours Temp Pulse Resp BP Pulse Ox 02/19/17 11:00 98.8 F 80 24 152/84 91 02/19/17 07:58 98.3 F 67 22 149/97 90 General: Conversant, No Apparent Distress HEENT: Atraumatic, Normocephaly, Mucus Membranes Moist Neck: No JVD, Normal carotid pulses Cardiac: Reg Rate and Rhythm, Normal S1 and S2, No Murmur Lungs: Other (Course lung sounds throughout. ) Neuro: Alert and responsive, No focal deficits noted Abdomen: Soft, Non-Tender Skin: No rashes noted on visualized skin Musculoskeletal: No Chest Wall Tenderness Extremities: No Clubbing, No Cyanosis, No Edema, Normal Pulses Results 02/18/17 04:32 02/18/17 04:32 Impressions Chest CTA 02/17/17 12:57 IMPRESSION: 1. No pulmonary embolus within the limitations of this exam. 2. 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 This has slightly progressed since the prior exam. 3. Grossly stable mediastinal hilar adenopathy, likely reactive. D/ / 02/17/2017 14:47:57 Renata Clemons MD / long Interpreting Provider: Renata Clemons MD Active Medications Acetaminophen (Tylenol) 650 mg PO Q6HR PRN PRN Reason: Mild Pain (1-3) Stop: 08/19/17 16:00 Last Admin: 02/17/17 19:57 Dose: 650 mg Acetaminophen/Hydrocodone Bitart (Ashkum 5-325 Mg) 1 tab PO Q4HR PRN PRN Reason: Moderate Pain (4-6) Stop: 08/19/17 16:00 Aspirin (Aspirin Ec) 81 mg PO DAILY [facility] Stop: 08/20/17 09:01 Last Admin: 02/19/17 09:16 Dose: 81 mg Atenolol (Tenormin) 50 mg PO BID [facility] Stop: 08/21/17 21:01 Atenolol (Tenormin) 25 mg PO ONCE ONE Stop: 02/19/17 11:26 Erythromycin (Erythromycin Opth Oint) 1 appl LEFT EYE QID [facility] Stop: 08/20/17 17:01 Last Admin: 02/19/17 09:18 Dose: 1 appl Heparin Sodium (Porcine) (Heparin) 5,000 unit SQ Q12HCO [facility] Stop: 08/20/17 18:01 Last Admin: 02/19/17 06:05 Dose: 5,000 unit Sodium Chloride (0.9 % Sodium Chloride) 1,000 mls @ 100 mls/hr IVC .Q10H [facility] Stop: 08/19/17 16:16 Last Admin: 02/19/17 01:56 Dose: 100 mls/hr Diltiazem HCl 125 mg/ Dextrose 125 mls @ 5 mls/hr IVC .Q24H [facility] PRN Reason: 5 MG/HR Stop: 08/20/17 17:31 Methylprednisolone (Solu-Medrol) 40 mg IVP Q6H [facility] Stop: 08/20/17 09:01 Last Admin: 02/19/17 09:16 Dose: 40 mg Morphine Sulfate (Morphine Sulfate) 2 mg IVP Q4HR PRN PRN Reason: Severe Pain (7-10) Stop: 08/19/17 16:00 Naloxone HCl (Narcan) 0.4 mg IVP Q2MIN PRN PRN Reason: Opioid Reversal Stop: 08/19/17 15:55 Omeprazole (Prilosec) 20 mg PO 0630 [facility] PRN Reason: Protocol Stop: 08/20/17 06:31 Last Admin: 02/19/17 06:06 Dose: 20 mg Ondansetron HCl (Zofran) 4 mg IVP Q8HR PRN PRN Reason: Nausea And Vomiting Stop: 08/19/17 16:00 Oseltamivir Phosphate (Tamiflu) 75 mg PO BID [facility] Stop: 02/22/17 21:01 Last Admin: 02/19/17 09:16 Dose: 75 mg Sodium Chloride (Jeannie-128) 1 appl OP HS [facility] Stop: 08/19/17 21:01 Last Admin: 02/18/17 20:47 Dose: 1 appl Laboratory Tests 02/17/17 02/17/17 02/18/17 11:34 11:34 04:32 WBC 4.2 L Hgb 14.0 D Potassium Creatinine Troponin I 0.02 B-Natriuretic Peptide 68 02/18/17 04:32 WBC Hgb Potassium 3.6 Creatinine 0.85 Troponin I B-Natriuretic Peptide - Imaging and Cardiology Chest Xray: report reviewed - EKG Interpretation EKG results cardiology: personally reviewed (ECG 02/17/17 1121 with Sinus tachycardia with frequent PACs. ECG 02/17/17 1121 with Sinus rhythm with incomplete LBBB, HR 82.), other (Telemetry reviewed with average HR 81, Sinus rhythm. PVCs and occasional couplets noted. 3 triplet episodes of PVCS noted. Frequent PACs noted.) Consult Discharge Plan - Plan Referrals: Zeke Resendiz MD [Primary Care Provider] -
--- NOTE | 2017-02-19 15:52 | Internal Med Progress Note ---
Date of Encounter: 02/19/17 Time of Encounter: 08:15 - Assessment and plan (1) Acute and chronic respiratory failure with hypoxia Current Visit: Yes Status: Acute Assessment and plan: Pt with acute on chronic hypoxic resp failure due to combination of ILD and acute influenza B. Will wean oxygen down as able. (2) Influenza B Current Visit: Yes Status: Acute Assessment and plan: Pt with acute influenza B. Currently on Tamiflu. Afebrile now. Complete course of Tamiflu. (3) Tachycardia Current Visit: Yes Status: Acute Assessment and plan: Appreciate cardiology input. Aerosols stopped at this time. Continue to monitor on increased dose of Atenolol. (4) Right lower lobe pneumonia Current Visit: Yes Status: Ruled-out Assessment and plan: CT of chest did not show infiltrate. Pt with acute influenza B. IV abx discontinued today. Will follow clinically for now. Qualifiers: Pneumonia type: due to unspecified organism Qualified Code(s): J18.1 - Lobar pneumonia, unspecified organism (5) ILD (interstitial lung disease) Current Visit: Yes Status: Chronic Assessment and plan: Pt with progressive disease on current CT. Will need further pulmonary follow up after discharge. - Subjective Interval history: Mr. Carpenter is currently in observation for acute on chronic hypoxic resp failure and acute influenza B. He is high risk due to potential worsening of respiratory status. Mr. Carpenter is having episodes of tachycardia today. Heartrate increases with any movement or coughing. Denies chest pain. Coughing some. No fever or chills. Did have some hemoptysis but thinks perhaps was from his sinuses. Denies GI symptoms. - Constitutional Vitals: Temp Pulse Resp BP Pulse Ox 98.8 F 80 24 152/84 91 02/19/17 11:00 02/19/17 11:00 02/19/17 11:00 02/19/17 11:00 02/19/17 11:00 General appearance: Present: A&O X 3, answers questions appropriately - Head Head exam: Present: normocephalic - Eye Eye exam: Present: EOMI, conjuntiva pink - ENT ENT exam: Present: mucous membranes moist - Respiratory Respiratory exam: Present: decreased breath sounds, rales - Cardiovascular Cardiovascular exam: Present: RRR, tachycardia - GI/Abdominal GI/Abdominal exam: Present: soft. Absent: tenderness - Extremities Exam Extremities exam: Present: warm. Absent: pedal edema - Neurological Exam Neurological exam: Present: alert, oriented X3. Absent: no focal deficits - Psychiatric Psychiatric exam: Present: normal affect, normal mood - Skin Skin exam: Present: warm. Absent: rash Internal Medicine: Result - Labs CBC & Chem 7: 02/18/17 04:32 02/18/17 04:32 - ABG Interpretation ABG results: ABG ABG pH 7.45 pH Units (7.32-7.45) 02/17/17 12:10 ABG pCO2 38 mmHg (35-45) 02/17/17 12:10 ABG pO2 91 mmHg (85-104) 02/17/17 12:10 ABG O2 Saturation 97 % (95-98) 02/17/17 12:10 PT/INR, D-dimer PT 13.5 Seconds (9.4-12.1) H 02/17/17 11:34 Consult Discharge Plan - Plan Referrals: Zeke Resendiz MD [Primary Care Provider] -
[2017-02-19] MEDS: Sodium Chloride 5% OPTH 3.5 GM TUBE OP SCH (21:32)
[2017-02-20] MEDS: MethylPREDNISolone 40 MG/ML VIAL IVP SCH ×4 (03:41→22:57)
[2017-02-20 05:11] LABS: Hematocrit 41.6 % (37.5-50.1); Hemoglobin 14.5 g/dL (12.9-16.9); Mean Corpuscular HGB Conc 34.9 g/dL (31.6-35.5); Mean Corpuscular Hemoglobin 30.9 pg (28.0-33.3); Mean Corpuscular Volume 88.5 fL (83.0-100.0); Mean Platelet Volume 9.7 fL (9.4-12.4); Platelet Count 166 K/mcL (140-400)
[2017-02-20 05:24] LABS: BUN/Creatinine Ratio 28 (6-26); Blood Urea Nitrogen 20 mg/dL (8-26); Calcium 7.9 mg/dL (8.6-10.8); Carbon Dioxide 25 mEq/L (19-29); Chloride 106 mEq/L (98-109); Glucose 163 mg/dL (70-99); Magnesium 1.7 mg/dL (1.6-2.6); Osmolality,Calculated 294 (280-300); Potassium 3.2 mEq/L (3.5-4.5); Sodium 139 mEq/L (136-145); eGFR For African Americans > 60 (> 60); eGFR For Non-African Americans > 60 (> 60)
[2017-02-20] MEDS: *HR* Heparin 5,000 UNIT/ML VIAL SQ SCH ×2 (05:47→18:26)
[2017-02-20] MEDS: Aspirin Enteric Coated 81 MG Tablet PO SCH (09:46)
[2017-02-20] MEDS: Erythromycin OPTH Oint LEFT EYE SCH ×4 (09:47→21:03)
[2017-02-20] MEDS: 0.9 % Sodium Chloride 1,000 ML IVC SCH (09:48)
--- NOTE | 2017-02-20 13:45 | Internal Med Progress Note ---
Date of Encounter: 02/20/17 Time of Encounter: 07:45 - Assessment and plan (1) Acute and chronic respiratory failure with hypoxia Current Visit: Yes Status: Acute Assessment and plan: He continues to have significant hypoxia with movement. He understands this is most likely endstage lung disease. He is on IV steroids without much improvement. Will decrease steroids today. Wean oxygen as able. At this point if he does not make much more improvement in the next 24 hours will discuss palliative and/or hospice. (2) Influenza B Current Visit: Yes Status: Acute Assessment and plan: Pt with acute influenza B. Currently on Tamiflu. Complete course of Tamiflu. (3) Multifocal atrial tachycardia Current Visit: Yes Status: Acute Assessment and plan: Related to hypoxia and chronic lung disease. Will increase Atenolol as tolerated (has had decrease in episodes with current dose). (4) Hypokalemia Current Visit: Yes Status: Acute Assessment and plan: Replace today. (5) Leukocytosis Current Visit: Yes Status: Acute Assessment and plan: Significant increase in WBC in 2 days. Suspect is due to steroids. Recheck tomorrow. Qualifiers: Leukocytosis type: leukemoid reaction Qualified Code(s): D72.823 - Leukemoid reaction (6) Hyperglycemia, drug-induced Current Visit: Yes Status: Acute Assessment and plan: Suspect is steroid related. Plan to decrease steroids today. (7) ILD (interstitial lung disease) Current Visit: Yes Status: Chronic Assessment and plan: Most likely reaching end stage. Anticipate palliative if no further improvement. (8) Right lower lobe pneumonia Current Visit: Yes Status: Ruled-out Assessment and plan: Stable off abx. No fever or chills. No worsening cough. No sputum. Qualifiers: Pneumonia type: due to unspecified organism Qualified Code(s): J18.1 - Lobar pneumonia, unspecified organism - Subjective Interval history: Mr. Carpenter is currently in observation for acute on chronic hypoxic resp failure and acute influenza B. He is high risk due to potential worsening of respiratory status. Mr. Carpenter is still getting quite hypoxic with any movement. He is still have episodes of MAT with his hypoxia. No CP. He realizes this may be potentially end stage of his lung disease. He denies GI symptoms. No fever or chills. - Constitutional Vitals: Temp Pulse Resp BP Pulse Ox 97.9 F 75 16 107/66 90 02/20/17 11:48 02/20/17 11:48 02/20/17 11:48 02/20/17 11:48 02/20/17 11:48 General appearance: Present: A&O X 3, answers questions appropriately - Head Head exam: Present: normocephalic - Eye Eye exam: Present: EOMI, conjuntiva pink - ENT ENT exam: Present: mucous membranes moist - Respiratory Respiratory exam: Present: rales. Absent: rhonchi, wheezes - Cardiovascular Cardiovascular exam: Present: tachycardia Additional comments: Having episodes of MAT and sinus rhythm. - GI/Abdominal GI/Abdominal exam: Present: soft. Absent: tenderness - Extremities Exam Extremities exam: Present: pedal edema, warm - Neurological Exam Neurological exam: Present: alert, oriented X3, no focal deficits - Psychiatric Psychiatric exam: Present: normal affect, normal mood - Skin Skin exam: Present: warm. Absent: rash Internal Medicine: Result - Labs CBC & Chem 7: 02/20/17 04:50 02/20/17 04:50 Labs: Short CBC 02/20/17 Range/Units 04:50 WBC 14.6 H D (4.3-11.1) K/mcL Hgb 14.5 (12.9-16.9) g/dL Hct 41.6 (37.5-50.1) % Plt Count 166 (140-400) K/mcL BMP 02/20/17 04:50 Sodium 139 Potassium 3.2 L Chloride 106 Carbon Dioxide 25 BUN 20 Creatinine 0.71 L Glucose 163 H Calcium 7.9 L - ABG Interpretation ABG results: ABG ABG pH 7.45 pH Units (7.32-7.45) 02/17/17 12:10 ABG pCO2 38 mmHg (35-45) 02/17/17 12:10 ABG pO2 91 mmHg (85-104) 02/17/17 12:10 ABG O2 Saturation 97 % (95-98) 02/17/17 12:10 PT/INR, D-dimer PT 13.5 Seconds (9.4-12.1) H 02/17/17 11:34 Consult Discharge Plan - Plan Instructions: Atrial Fibrillation (DC), Influenza (DC), Influenza (GEN), Influenza, Senior Games Technician (GEN) Referrals: Zeke Resendiz MD [Primary Care Provider] -
[2017-02-20] MEDS: Sodium Chloride 5% OPTH 3.5 GM TUBE OP SCH (22:57)
[2017-02-21] MEDS: *HR* Heparin 5,000 UNIT/ML VIAL SQ SCH ×2 (05:41→17:50)
[2017-02-21 06:16] LABS: Basophils % 0.3 %; Hemoglobin 15.2 g/dL (12.9-16.9); Immature Granulocytes % 1.3 % (0-4); Lymphocytes % 7.4 %; Mean Corpuscular HGB Conc 33.8 g/dL (31.6-35.5); Mean Corpuscular Hemoglobin 29.7 pg (28.0-33.3); Mean Corpuscular Volume 88.1 fL (83.0-100.0); Mean Platelet Volume 9.6 fL (9.4-12.4); Monocytes # 0.8 K/mcL (0.0-1.3); Monocytes % 5.7 %; Neutrophils # 11.4 K/mcL (1.6-8.9); Platelet Count 186 K/mcL (140-400); Red Blood Count 5.11 M/mcL (4.19-5.50); Red Cell Distribution Width 12.8 % (11.5-14.5); Segmented Neutrophils % 85.3 %
[2017-02-21 06:40] LABS: BUN/Creatinine Ratio 30 (6-26); Blood Urea Nitrogen 23 mg/dL (8-26); Calcium 8.1 mg/dL (8.6-10.8); Carbon Dioxide 24 mEq/L (19-29); Chloride 102 mEq/L (98-109); Glucose 164 mg/dL (70-99); Osmolality,Calculated 291 (280-300); Potassium 3.5 mEq/L (3.5-4.5); Sodium 137 mEq/L (136-145); eGFR For African Americans > 60 (> 60); eGFR For Non-African Americans > 60 (> 60)
[2017-02-21] MEDS: MethylPREDNISolone 40 MG/ML VIAL IVP SCH ×2 (09:52→17:50)
[2017-02-21] MEDS: Aspirin Enteric Coated 81 MG Tablet PO SCH (09:52)
[2017-02-21] MEDS: Erythromycin OPTH Oint LEFT EYE SCH ×4 (09:58→20:31)
[2017-02-21] MEDS: Sodium Chloride 5% OPTH 3.5 GM TUBE OP SCH (20:31)
--- NOTE | 2017-02-21 20:39 | Internal Med Progress Note ---
Date of Encounter: 02/21/17 Time of Encounter: 15:30 - Assessment and plan (1) Acute and chronic respiratory failure with hypoxia Current Visit: Yes Status: Acute Assessment and plan: Continues to be hypoxic with movement. No chest pain. He agrees to rehab placement. Will continue oxygen and wean steroids as able. (2) Influenza B Current Visit: Yes Status: Acute Assessment and plan: Pt with acute influenza B. Currently on Tamiflu. Complete course of Tamiflu. (3) Multifocal atrial tachycardia Current Visit: Yes Status: Acute Assessment and plan: Related to hypoxia and chronic lung disease. Will increase Atenolol as tolerated (has had decrease in episodes with current dose). (4) Hypokalemia Current Visit: Yes Status: Acute Assessment and plan: Resolved (5) Leukocytosis Current Visit: Yes Status: Acute Assessment and plan: Somewhat better today. Qualifiers: Leukocytosis type: leukemoid reaction Qualified Code(s): D72.823 - Leukemoid reaction (6) Hyperglycemia, drug-induced Current Visit: Yes Status: Acute Assessment and plan: Suspect is steroid related. Plan to decrease steroids today and change to oral tomorrow. (7) ILD (interstitial lung disease) Current Visit: Yes Status: Chronic Assessment and plan: Most likely reaching end stage. Anticipate palliative if no further improvement. (8) Right lower lobe pneumonia Current Visit: Yes Status: Ruled-out Assessment and plan: Stable off abx. No fever or chills. No worsening cough. No sputum. Qualifiers: Pneumonia type: due to unspecified organism Qualified Code(s): J18.1 - Lobar pneumonia, unspecified organism - Subjective Interval history: Mr. Carpenter is currently in observation for acute on chronic hypoxic resp failure and acute influenza B. He is high risk due to potential worsening of respiratory status. Mr. Carpenter feels he is more dyspneic today. He does not appear to have as much MAT. Therapy recommended SNF and he is agreeable. No other acute issues. - Constitutional Vitals: Temp Pulse Resp BP Pulse Ox 97.9 F 59 18 127/78 92 02/21/17 15:51 02/21/17 15:51 02/21/17 15:51 02/21/17 15:51 02/21/17 15:51 General appearance: Present: A&O X 3, answers questions appropriately - Head Head exam: Present: normocephalic - Eye Eye exam: Present: conjuntiva pink - ENT ENT exam: Present: mucous membranes moist - Respiratory Respiratory exam: Present: decreased breath sounds, rales - Cardiovascular Cardiovascular exam: Present: RRR. Absent: systolic murmur, tachycardia - GI/Abdominal GI/Abdominal exam: Present: soft. Absent: tenderness - Extremities Exam Extremities exam: Present: warm. Absent: tenderness - Neurological Exam Neurological exam: Present: alert, oriented X3, no focal deficits - Psychiatric Psychiatric exam: Present: normal affect, normal mood - Skin Skin exam: Present: warm. Absent: rash Internal Medicine: Result - Labs CBC & Chem 7: 02/21/17 05:58 02/21/17 05:58 Labs: Short CBC 02/21/17 Range/Units 05:58 WBC 13.4 H (4.3-11.1) K/mcL Hgb 15.2 (12.9-16.9) g/dL Hct 45.0 (37.5-50.1) % Plt Count 186 (140-400) K/mcL Neutrophils # 11.4 H (1.6-8.9) K/mcL BMP 02/21/17 05:58 Sodium 137 Potassium 3.5 Chloride 102 Carbon Dioxide 24 BUN 23 Creatinine 0.76 Glucose 164 H Calcium 8.1 L - ABG Interpretation ABG results: ABG ABG pH 7.45 pH Units (7.32-7.45) 02/17/17 12:10 ABG pCO2 38 mmHg (35-45) 02/17/17 12:10 ABG pO2 91 mmHg (85-104) 02/17/17 12:10 ABG O2 Saturation 97 % (95-98) 02/17/17 12:10 PT/INR, D-dimer PT 13.5 Seconds (9.4-12.1) H 02/17/17 11:34 Consult Discharge Plan - Plan Instructions: Atrial Fibrillation (DC), Influenza (DC), Influenza (GEN), Influenza, Shirring Machine Operator (GEN) Referrals: Zeke Resendiz MD [Primary Care Provider] -
[2017-02-22] MEDS: MethylPREDNISolone 40 MG/ML VIAL IVP SCH ×2 (00:06→08:57)
[2017-02-22] MEDS: *HR* Heparin 5,000 UNIT/ML VIAL SQ SCH (05:41)
[2017-02-22 06:29] LABS: Hematocrit 46.7 % (37.5-50.1); Hemoglobin 15.7 g/dL (12.9-16.9); Mean Corpuscular HGB Conc 33.6 g/dL (31.6-35.5); Mean Corpuscular Hemoglobin 29.7 pg (28.0-33.3); Mean Corpuscular Volume 88.3 fL (83.0-100.0); Mean Platelet Volume 9.9 fL (9.4-12.4); Platelet Count 220 K/mcL (140-400); Red Blood Count 5.29 M/mcL (4.19-5.50); Red Cell Distribution Width 12.7 % (11.5-14.5)
[2017-02-22 06:47] LABS: BUN/Creatinine Ratio 33 (6-26); Blood Urea Nitrogen 25 mg/dL (8-26); Calcium 8.1 mg/dL (8.6-10.8); Carbon Dioxide 30 mEq/L (19-29); Chloride 100 mEq/L (98-109); Glucose 182 mg/dL (70-99); Osmolality,Calculated 293 (280-300); Potassium 3.6 mEq/L (3.5-4.5); Sodium 137 mEq/L (136-145); eGFR For African Americans > 60 (> 60); eGFR For Non-African Americans > 60 (> 60)
[2017-02-22 08:04] VITALS: BP 131/78
[2017-02-22] MEDS: Aspirin Enteric Coated 81 MG Tablet PO SCH (08:57)
[2017-02-22] MEDS: Erythromycin OPTH Oint LEFT EYE SCH (08:59)
--- NOTE | 2017-02-22 14:00 | Discharge Summary ---
Date of Encounter: 02/22/17 Time of Encounter: 13:57 - Discharge Diagnosis (1) Acute and chronic respiratory failure with hypoxia Priority: Primary Status: Acute (2) Influenza B Priority: Primary Status: Acute (3) Multifocal atrial tachycardia Priority: Secondary Status: Acute (4) Hypokalemia Priority: Secondary Status: Acute (5) Leukocytosis Priority: Secondary Status: Acute Qualifiers: Leukocytosis type: leukemoid reaction Qualified Code(s): D72.823 - Leukemoid reaction (6) Hyperglycemia, drug-induced Priority: Secondary Status: Acute (7) ILD (interstitial lung disease) Priority: Secondary Status: Chronic (8) Right lower lobe pneumonia Priority: Secondary Status: Ruled-out Qualifiers: Pneumonia type: due to unspecified organism Qualified Code(s): J18.1 - Lobar pneumonia, unspecified organism - Discharge Medications Prescriptions: PredniSONE See Taper PO DAILY #63 tablet Home Medications: Aspirin Enteric Coated [Aspirin EC] 81 mg PO DAILY 02/17/17 [History] Erythromycin OPTH Oint 1 appl OP QID 02/17/17 [History] Omeprazole [PriLOSEC] 20 mg PO DAILY 02/17/17 [History] Oxygen 3 l NS AD 02/17/17 [History] Sodium Chloride 5% OPTH Oint [Jeannie-128] 1 appl OP HS 02/17/17 [History] Atenolol [Tenormin] 50 mg PO BID tablet 02/22/17 [Rx] PredniSONE See Taper PO DAILY #63 tablet 02/22/17 [Rx] Allergies/Adverse Reactions: Allergies Sulfa (Sulfonamide Antibiotics) Allergy (Verified 02/17/17 11:03) Anaphylaxis vancomycin Allergy (Verified 02/17/17 11:03) Anaphylaxis metoprolol Adverse Reaction (Verified 02/17/17 16:48) See Comments patient states increased heart rate and increased blood pressure Date of admission: 02/17/17 16:16 Primary care physician: Zeke Resendiz MD Consults: 02/17/17 17:30 Consult to Nutrition [CONS] Routine Comment: Consulting Provider: NUTRITION Reason for Dietary Consult: PO Supplementation Consult to Community Organizer [CONS] Routine Reason for SW Consult: Home O2 02/19/17 09:26 Consult to Cardiology [CONS] Routine Comment: Consulting Provider: Card[facility] [place] Reason for Consult: Tachycardia Call Completed: Yes 02/20/17 13:52 Consult to Occupational Therapy [CONS] Routine Comment: Evaluate, develop and implement POC Consult to Physical Therapy [CONS] Routine Comment: Evaluate, develop and implement POC Discharging clinician: Lan Montes Anticipated date of discharge: 02/22/17 - Patient Status Disposition: Transfer SNF Condition: Fair Functional capacity at discharge: uses cane/walker - Discharge Instructions Instructions: Atrial Fibrillation (DC), Influenza (DC), Influenza (GEN), Influenza, Commutator Inspector (GEN) Follow Up With: Zeke Resendiz MD [Primary Care Provider] - - Diet and Activity Activity: as per physical therapy Hospital course: Mr. Carpenter is a 81 year old male with a history of pulmonary fibrosis presented to ED with worsening dyspnea. He was needing higher levels of oxygen at home and desaturated with movement. In ED he was evaluated and found to be Influenza B positive. He was subsequently placed in observation. Mr. Carpenter was placed in observation on [employer]. The CXR was suspicious for pneumonia and he was placed on IV abx and PO Tamiflu. He continued to be hypoxic with any movement. He was placed on IV steroids without much improvement. He was also having episodes of MAT with coughing and moving. He was seen by cardiology and Atenolol was increased. Ultimately his heartrate was much improved. He had a CTA of his chest on admission and no infiltrate was observed. IV abx were stopped at that time. Steroids were slowly tapered. He continued to have issues with his oxygenation and he understood that this may be endstage fibrosis. Over time he did begin to feel better and was able to move around with significant desaturation. He was evaluated by PT/OT and recommended SNF placement for which he agreed. On 02/22 he is awake and alert. He is maintaining oxygenation. He is afebrile and vitals are stable. At this point he was felt ready to go to rehab at skilled facility. - Time Spent with Patient Total time spent providing and/or coordinating discharge services: 40min - Constitutional Vitals: Temp Pulse Resp BP Pulse Ox 97.8 F 66 18 131/78 90 02/22/17 07:00 02/22/17 07:00 02/22/17 07:00 02/22/17 07:00 02/22/17 07:00 General appearance: Present: A&O X 3, answers questions appropriately - Head Head exam: Present: normocephalic - Eye Eye exam: Present: EOMI, conjuntiva pink - ENT ENT exam: Present: mucous membranes moist - Respiratory Respiratory exam: Present: decreased breath sounds, rales - Cardiovascular Cardiovascular exam: Present: RRR. Absent: systolic murmur, tachycardia - GI/Abdominal GI/Abdominal exam: Present: soft. Absent: tenderness - Extremities Exam Extremities exam: Present: warm. Absent: pedal edema - Neurological Exam Neurological exam: Present: alert, oriented X3, no focal deficits - Psychiatric Psychiatric exam: Present: normal affect, normal mood - Skin Skin exam: Present: warm. Absent: rash
--- NOTE | 2017-02-22 14:38 | Physician Discharge Referral ---
[facility]Care Referral Info Transfer To: [facility] Provider in Charge: Lan Montes DO Provider in Charge after Transfer: PCP Institutional Level of Care: Skilled - Diagnosis (1) Acute and chronic respiratory failure with hypoxia Priority: Primary Status: Acute (2) Influenza B Priority: Primary Status: Acute (3) Multifocal atrial tachycardia Priority: Secondary Status: Acute (4) Hypokalemia Priority: Secondary Status: Acute (5) Leukocytosis Priority: Secondary Status: Acute (6) Hyperglycemia, drug-induced Priority: Secondary Status: Acute (7) ILD (interstitial lung disease) Priority: Primary Status: Chronic (8) Right lower lobe pneumonia Priority: Secondary Status: Ruled-out Expected Duration of Placement: Less than 30 days Prognosis: Fair Aware of Diagnosis: Patient, Family Aware of Prognosis: Patient, Family - Transfer Medications Prescriptions: PredniSONE See Taper PO DAILY #63 tablet Home Medications: Aspirin Enteric Coated [Aspirin EC] 81 mg PO DAILY 02/17/17 [History] Erythromycin OPTH Oint 1 appl OP QID 02/17/17 [History] Omeprazole [PriLOSEC] 20 mg PO DAILY 02/17/17 [History] Oxygen 3 l NS AD 02/17/17 [History] Sodium Chloride 5% OPTH Oint [Jeannie-128] 1 appl OP HS 02/17/17 [History] Atenolol [Tenormin] 50 mg PO BID tablet 02/22/17 [Rx] PredniSONE See Taper PO DAILY #63 tablet 02/22/17 [Rx] Allergies/Adverse Reactions: Allergies Sulfa (Sulfonamide Antibiotics) Allergy (Verified 02/17/17 11:03) Anaphylaxis vancomycin Allergy (Verified 02/17/17 11:03) Anaphylaxis metoprolol Adverse Reaction (Verified 02/17/17 16:48) See Comments patient states increased heart rate and increased blood pressure - Respiratory Orders Oxygen / L per min (Maintain saturation 90%) Smoking Cessation: Smoking cessation has been advised. For more information, call the [employer] Tobacco Quit Line at 2-321-DCVW-NOW. - Lab Orders Lab Orders: 2 Step Mantoux Test per State regulation - Ancillary Orders May use pressure relief devices daily prn, May consult with Dentist, Air Cargo Agent, Insurance Coder PRN - Advance Directives Code Status: DNR-Arrest/Don't Intubate - History and Physical History/Physical reviewed & approved w/add comments: Pt with improved air movement and oxygenation - Mobility Orders Ambulate - Rehabiliation Orders Rehab Potential: Fair Rehab Orders: Evaluation for Physical Therapy, Evaluation for Occupational Therapy - Treatments Skin tear care topically daily PRN per policy, May check for fecal impaction rectally daily PRN, Fleet enema rectally every other day PRN cleansing purposes - Diet Orders No Added Salt (KEENAN) CERTIFICATION: I certify that the transfer of the above named patient to an Extended Care Facility is necessary for the continuing treatment of the diagnosis listed. The above information is true and accurate reflection of patient's current condition. Confidential - Redisclosure prohibited without a patient's written consent.
[2017-02-22] MEDS ORDERED: MethylPREDNISolone 40 MG/ML VIAL IVP SCH (18:00)
== END 2017-02-22 17:01 ==
LOC: 2NENU 10:57 → EMEROO 10:57 → SUATTDRO 16:16 → 2NENU 16:56
PROVIDERS: ADMIT Internal Medicine; ATTEND Internal Medicine

== ENCOUNTER 2020-06-24 11:27 | Inpatient (IN) ==
[2020-06-24] MEDS ORDERED: Nitroglycerin 0.4 MG TAB.SUBL SL PRN (11:29)
[2020-06-24] MEDS ORDERED: Aspirin 81 MG TAB.CHEW PO ONE (11:29)
[2020-06-24 12:24] LABS: INR 1.2; Prothrombin Time 13.5 Seconds (9.4-12.1)
[2020-06-24 12:26] LABS: Activated Partial Thrombo Time 26.7 Seconds (26.0-36.0)
[2020-06-24 12:27] LABS: Basophils # 0.1 K/mcL (0.0-0.2); Basophils % 0.9 %; Eosinophils # 0.1 K/mcL (0.0-0.6); Eosinophils % 2.1 %; Hemoglobin 13.9 g/dL (12.9-16.9); Immature Granulocytes % 0.4 % (0-4); Lymphocytes # 1.2 K/mcL (0.6-4.6); Lymphocytes % 17.8 %; Mean Corpuscular HGB Conc 31.6 g/dL (31.6-35.5); Mean Corpuscular Hemoglobin 30.2 pg (28.0-33.3); Mean Corpuscular Volume 95.4 fL (83.0-100.0); Mean Platelet Volume 9.3 fL (9.4-12.4); Monocytes # 0.7 K/mcL (0.0-1.3); Monocytes % 10.3 %; Neutrophils # 4.6 K/mcL (1.6-8.9); Platelet Count 224 K/mcL (140-400); Red Blood Count 4.61 M/mcL (4.19-5.50); Red Cell Distribution Width 12.6 % (11.5-14.5); Segmented Neutrophils % 68.5 %; White Blood Count 6.7 K/mcL (4.3-11.1)
[2020-06-24 12:44] LABS: BUN/Creatinine Ratio 33 (6-26); Blood Urea Nitrogen 27 mg/dL (8-23); Calcium 9.8 mg/dL (8.6-10.3); Carbon Dioxide 31 mEq/L (23-29); Chloride 100 mEq/L (98-107); Glucose 127 mg/dL (70-105); Osmolality,Calculated 289 (280-300); Potassium 4.1 mEq/L (3.5-5.1); Sodium 136 mEq/L (136-145); Troponin I 0.05 ng/mL (< 0.04); eGFR For African Americans > 60 (> 60); eGFR For Non-African Americans > 60 (> 60)
[2020-06-24] MEDS ORDERED: Acetaminophen 325 MG TABLET PO PRN (13:50)
[2020-06-24] MEDS ORDERED: Naloxone 0.4 MG/ML INJ IVP PRN (13:50)
[2020-06-24] MEDS ORDERED: Ondansetron 4 MG/2 ML VIAL IVP PRN (13:50)
[2020-06-24] MEDS ORDERED: Perflutren Lipid Microsphere 1.3 ML in 0.9 % Sodium Chloride 8.7 ML IVP PRN (13:53)
[2020-06-24] MEDS: *HR* Heparin 5,000 UNIT/ML VIAL SQ SCH (17:03)
[2020-06-24] MEDS ORDERED: Nitroglycerin 1 INCH/GM PACKET TP PRN (19:15)
[2020-06-24] MEDS ORDERED: Morphine Sulfate 2 MG/ML SYRINGE IVP ONE (19:49)
[2020-06-24] MEDS: atenoloL 25 MG TABLET PO SCH (20:20)
[2020-06-25 00:51] LABS: Basophils # 0.1 K/mcL (0.0-0.2); Basophils % 0.9 %; Eosinophils # 0.4 K/mcL (0.0-0.6); Eosinophils % 4.6 %; Hematocrit 42.1 % (37.5-50.1); Hemoglobin 13.6 g/dL (12.9-16.9); Immature Granulocytes % 0.1 % (0-4); Lymphocytes # 1.8 K/mcL (0.6-4.6); Lymphocytes % 22.7 %; Mean Corpuscular HGB Conc 32.3 g/dL (31.6-35.5); Mean Corpuscular Hemoglobin 30.3 pg (28.0-33.3); Mean Corpuscular Volume 93.8 fL (83.0-100.0); Mean Platelet Volume 9.3 fL (9.4-12.4); Monocytes % 12.1 %; Neutrophils # 4.7 K/mcL (1.6-8.9); Platelet Count 226 K/mcL (140-400); Red Blood Count 4.49 M/mcL (4.19-5.50); Red Cell Distribution Width 12.6 % (11.5-14.5); Segmented Neutrophils % 59.6 %
[2020-06-25 01:09] LABS: BUN/Creatinine Ratio 30 (6-26); Blood Urea Nitrogen 21 mg/dL (8-23); Calcium 9.1 mg/dL (8.6-10.3); Carbon Dioxide 28 mEq/L (23-29); Chloride 103 mEq/L (98-107); Glucose 84 mg/dL (70-105); Magnesium 1.8 mg/dL (1.6-2.6); Osmolality,Calculated 286 (280-300); Potassium 3.6 mEq/L (3.5-5.1); Sodium 137 mEq/L (136-145); eGFR For African Americans > 60 (> 60); eGFR For Non-African Americans > 60 (> 60)
[2020-06-25 01:10] LABS: Chol/HDL Ratio 5.4 (0-4.9)
[2020-06-25] MEDS ORDERED: Famotidine 20 MG/2 ML VIAL IVP ONE (04:18)
[2020-06-25] MEDS: *HR* Heparin 5,000 UNIT/ML VIAL SQ SCH ×2 (04:30→17:31)
[2020-06-25 09:28] LABS: Estimated Average Glucose 114 mg/dl
[2020-06-25] MEDS: Aspirin Enteric Coated 81 MG Tablet PO SCH (12:55)
[2020-06-25] MEDS: atenoloL 25 MG TABLET PO SCH ×2 (12:55→21:45)
[2020-06-26] MEDS: *HR* Heparin 5,000 UNIT/ML VIAL SQ SCH ×2 (06:24→17:06)
[2020-06-26] MEDS: Famotidine 20 MG TABLET PO SCH ×2 (09:36→17:04)
[2020-06-26] MEDS: Aspirin Enteric Coated 81 MG Tablet PO SCH (09:36)
[2020-06-26] MEDS: atenoloL 25 MG TABLET PO SCH ×2 (09:39→21:08)
[2020-06-26] MEDS ORDERED: *HR* Heparin 5,000 UNIT/ML VIAL IVP ONE (22:41)
[2020-06-26] MEDS ORDERED: *HR* Heparin 5,000 UNIT/ML VIAL IVP PRN ×2 (22:41)
[2020-06-26] MEDS ORDERED: Heparin 25,000UNIT/250ML 1/2NS 25,000 UNIT/250 ML IV.SOLN IVC SCH (22:45)
[2020-06-26 23:15] LABS: Hematocrit 43.7 % (37.5-50.1); Hemoglobin 14.1 g/dL (12.9-16.9); Mean Corpuscular HGB Conc 32.3 g/dL (31.6-35.5); Mean Corpuscular Hemoglobin 30.2 pg (28.0-33.3); Mean Corpuscular Volume 93.6 fL (83.0-100.0); Mean Platelet Volume 9.3 fL (9.4-12.4); Platelet Count 224 K/mcL (140-400); Red Blood Count 4.67 M/mcL (4.19-5.50); Red Cell Distribution Width 12.6 % (11.5-14.5); White Blood Count 9.8 K/mcL (4.3-11.1)
[2020-06-26 23:20] LABS: Heparin anti-factor XA UFH 0.08 IU/mL (0.30-0.70)
[2020-06-26 23:21] LABS: INR 1.1; Prothrombin Time 12.7 Seconds (9.4-12.1)
[2020-06-27] MEDS ORDERED: atenoloL 25 MG TABLET PO ONE ×2 (01:00→01:59)
[2020-06-27 05:57] LABS: INR 1.2; Prothrombin Time 13.2 Seconds (9.4-12.1)
[2020-06-27 05:59] LABS: Basophils # 0.1 K/mcL (0.0-0.2); Basophils % 0.8 %; Eosinophils # 0.6 K/mcL (0.0-0.6); Eosinophils % 5.7 %; Hematocrit 43.2 % (37.5-50.1); Hemoglobin 14.1 g/dL (12.9-16.9); Immature Granulocytes % 0.2 % (0-4); Lymphocytes # 1.9 K/mcL (0.6-4.6); Lymphocytes % 19.4 %; Mean Corpuscular HGB Conc 32.6 g/dL (31.6-35.5); Mean Corpuscular Hemoglobin 30.7 pg (28.0-33.3); Mean Corpuscular Volume 94.1 fL (83.0-100.0); Mean Platelet Volume 9.3 fL (9.4-12.4); Monocytes # 1.1 K/mcL (0.0-1.3); Monocytes % 11.1 %; Neutrophils # 6.2 K/mcL (1.6-8.9); Platelet Count 228 K/mcL (140-400); Red Blood Count 4.59 M/mcL (4.19-5.50); Red Cell Distribution Width 12.7 % (11.5-14.5); Segmented Neutrophils % 62.8 %; White Blood Count 9.9 K/mcL (4.3-11.1)
[2020-06-27 06:12] LABS: BUN/Creatinine Ratio 32 (6-26); Blood Urea Nitrogen 25 mg/dL (8-23); Calcium 9.7 mg/dL (8.6-10.3); Carbon Dioxide 30 mEq/L (23-29); Chloride 103 mEq/L (98-107); Glucose 99 mg/dL (70-105); Osmolality,Calculated 292 (280-300); Potassium 3.8 mEq/L (3.5-5.1); Sodium 139 mEq/L (136-145); eGFR For African Americans > 60 (> 60); eGFR For Non-African Americans > 60 (> 60)
[2020-06-27] MEDS: atenoloL 25 MG TABLET PO SCH ×3 (07:48→20:08)
[2020-06-27] MEDS: Famotidine 20 MG TABLET PO SCH ×2 (07:48→16:30)
[2020-06-27] MEDS: Aspirin Enteric Coated 81 MG Tablet PO SCH (07:48)
[2020-06-27] MEDS ORDERED: 0.9 % Sodium Chloride 2,000 ML ONE (14:14)
[2020-06-27] MEDS ORDERED: *HR* Heparin 10,000 UNIT/10 ML VIAL ONE (14:14)
[2020-06-27] MEDS ORDERED: Heparin 1,000 UNITS/500 mL 500 ML ONE (14:14)
[2020-06-27] MEDS ORDERED: Nitroglycerin 1,000 MCG/10 ML VIAL IV ONE (14:14)
[2020-06-27] MEDS ORDERED: ISOVUE-370 200 ML INFUS..BTL ONE ×2 (14:14→15:33)
[2020-06-27] MEDS ORDERED: *HR* Midazolam HCl 2 MG/2 ML VIAL ONE (14:40)
[2020-06-27] MEDS ORDERED: *HR* FentaNYL (PF) 100 MCG/2 ML VIAL ONE (14:40)
[2020-06-27] MEDS ORDERED: Tirofiban 12.5 MG/250ML 12.5 MG/250 ML BAG ONE (15:11)
[2020-06-27] MEDS ORDERED: Tirofiban 12.5 MG/250ML 12.5 MG/250 ML BAG IVC SCH (16:00)
[2020-06-28 05:26] LABS: Hematocrit 43.9 % (37.5-50.1); Hemoglobin 14.4 g/dL (12.9-16.9); Mean Corpuscular HGB Conc 32.8 g/dL (31.6-35.5); Mean Corpuscular Hemoglobin 30.8 pg (28.0-33.3); Mean Platelet Volume 9.3 fL (9.4-12.4); Platelet Count 219 K/mcL (140-400); Red Blood Count 4.67 M/mcL (4.19-5.50); Red Cell Distribution Width 12.6 % (11.5-14.5); White Blood Count 9.5 K/mcL (4.3-11.1)
[2020-06-28 05:38] LABS: BUN/Creatinine Ratio 48 (6-26); Blood Urea Nitrogen 29 mg/dL (8-23); Calcium 9.4 mg/dL (8.6-10.3); Carbon Dioxide 26 mEq/L (23-29); Chloride 103 mEq/L (98-107); Glucose 87 mg/dL (70-105); Magnesium 1.8 mg/dL (1.6-2.6); Osmolality,Calculated 291 (280-300); Potassium 3.8 mEq/L (3.5-5.1); Sodium 138 mEq/L (136-145); eGFR For African Americans > 60 (> 60); eGFR For Non-African Americans > 60 (> 60)
[2020-06-28] MEDS: atenoloL 25 MG TABLET PO SCH (07:44)
[2020-06-28] MEDS: Famotidine 20 MG TABLET PO SCH (07:44)
[2020-06-28] MEDS ORDERED: Aspirin 81 MG TAB.CHEW PO SCH (09:00)
[2020-06-28 11:16] VITALS: BP 105/57
== END 2020-06-28 14:30 | disposition home or self-care (01) | DRG 247 ==
LOC: EMEROOARM 11:27 → 3BNU 11:27 → SUATTDRO 13:50 → 3BNU 14:13 → 2NNU 06-27 16:10
PROVIDERS: ADMIT Student in an Organized Health Care Education/Training Program; ATTEND Internal Medicine

== ENCOUNTER 2021-03-09 06:58 | Inpatient (IN) ==
[~2021-03-09 06:58] MED LIST: Ringers Solution, Lactated 1,000 ML IVC ONE
[2021-03-09] MEDS ORDERED: Lidocaine -MPF 2% 2 ML VIAL ONE (07:33)
[2021-03-09] MEDS ORDERED: 0.9 % Sodium Chloride 1,000 ML IVC SCH ×2 (08:00→11:45)
[2021-03-09] MEDS ORDERED: Naloxone 0.4 MG/ML INJ IVP PRN (11:35)
[2021-03-09] MEDS ORDERED: Ondansetron 4 MG/2 ML VIAL IVP PRN (11:35)
[2021-03-09] MEDS ORDERED: D5% in Water 1,000 ML IVC SCH (12:15)
[2021-03-09 12:23] LABS: Basophils # 0.1 K/mcL (0.0-0.2); Basophils % 0.5 %; Eosinophils # 0.3 K/mcL (0.0-0.6); Hematocrit 41.1 % (37.5-50.1); Hemoglobin 13.3 g/dL (12.9-16.9); Immature Granulocytes % 0.3 % (0-4); Lymphocytes # 1.2 K/mcL (0.6-4.6); Lymphocytes % 12.8 %; Mean Corpuscular HGB Conc 32.4 g/dL (31.6-35.5); Mean Corpuscular Hemoglobin 30.7 pg (28.0-33.3); Mean Corpuscular Volume 94.9 fL (83.0-100.0); Mean Platelet Volume 9.1 fL (9.4-12.4); Monocytes # 0.7 K/mcL (0.0-1.3); Monocytes % 7.8 %; Neutrophils # 7.1 K/mcL (1.6-8.9); Platelet Count 234 K/mcL (140-400); Red Blood Count 4.33 M/mcL (4.19-5.50); Red Cell Distribution Width 12.2 % (11.5-14.5); Segmented Neutrophils % 75.6 %; White Blood Count 9.4 K/mcL (4.3-11.1)
[2021-03-09 12:43] LABS: BUN/Creatinine Ratio 45 (6-26); Blood Urea Nitrogen 28 mg/dL (8-23); Carbon Dioxide 27 mEq/L (23-29); Chloride 101 mEq/L (98-107); Glucose 77 mg/dL (70-105); Magnesium 1.6 mg/dL (1.6-2.6); Osmolality,Calculated 288 (280-300); Potassium 3.6 mEq/L (3.5-5.1); Sodium 137 mEq/L (136-145); eGFR For African Americans > 60 (> 60); eGFR For Non-African Americans > 60 (> 60)
[2021-03-09] MEDS: D5% in Lactated Ringers 1,000 ML IVC SCH (13:16)
[2021-03-09] MEDS: Pantoprazole 40 MG VIAL IVP SCH (17:35)
[2021-03-09] MEDS: *HR* Heparin 5,000 UNIT/ML VIAL SQ SCH (17:36)
[2021-03-09] MEDS: atenoloL 25 MG TABLET PO SCH (19:51)
[2021-03-10] MEDS: D5% in Lactated Ringers 1,000 ML IVC SCH ×2 (01:07→08:13)
[2021-03-10] MEDS: *HR* Heparin 5,000 UNIT/ML VIAL SQ SCH ×2 (05:22→16:21)
[2021-03-10] MEDS: Pantoprazole 40 MG VIAL IVP SCH ×2 (05:30→16:32)
[2021-03-10] MEDS: atenoloL 25 MG TABLET PO SCH ×3 (06:06→20:30)
[2021-03-10] MEDS ORDERED: *HR* FentaNYL (PF) 100 MCG/2 ML VIAL ONE (06:43)
[2021-03-10] MEDS ORDERED: *HR* Propofol 200 MG/20 ML VIAL IVP ONE (06:44)
[2021-03-10] MEDS ORDERED: Lidocaine -MPF 2% 2 ML VIAL ONE (06:44)
[2021-03-10] MEDS ORDERED: *HR* Succinylcholine 200 MG/10 ML VIAL IVP ONE (06:44)
[2021-03-10] MEDS ORDERED: Ondansetron 4 MG/2 ML VIAL ONE (06:44)
[2021-03-10] MEDS ORDERED: *HR* Rocuronium Bromide 50 MG/5 ML VIAL ONE (06:44)
[2021-03-10] MEDS ORDERED: Lidocaine HCL 4 ML Topical Solution (Laryng-O-Jet Kit Sterile Pak) TP ONE (06:44)
[2021-03-10] MEDS ORDERED: Albuterol 2.5 MG/3 ML NEBULIZER IH PRN ×2 (07:53→09:47)
[2021-03-10] MEDS ORDERED: Nitroglycerin 0.4 MG TAB.SUBL SL PRN (07:53)
[2021-03-10] MEDS ORDERED: *HR* FentaNYL (PF) 100 MCG/2 ML VIAL IVP PRN (07:53)
[2021-03-10] MEDS ORDERED: Naloxone 0.4 MG/ML INJ IVP PRN (07:53)
[2021-03-10] MEDS ORDERED: Ringers Solution, Lactated 1,000 ML ONE (08:58)
[2021-03-10] MEDS ORDERED: Aspirin Enteric Coated 81 MG Tablet PO SCH (09:00)
[2021-03-10] MEDS ORDERED: D5% in Lactated Ringers 1,000 ML IVC SCH (09:47)
[2021-03-10] MEDS ORDERED: Acetaminophen IV 1,000 MG/100 ML BAG IVPB ONE (11:05)
[2021-03-10] MEDS ORDERED: Isovue-370 500 ML BOTTLE IVP ONE (12:14)
[2021-03-10] MEDS: *HR* HYDROmorphone (PF) 1 MG/ML SYRINGE IVP PRN ×3 (12:27→20:56)
[2021-03-10] MEDS: Sucralfate 1 GM TABLET PO SCH ×2 (16:32→20:31)
[2021-03-10] MEDS ORDERED: atenoloL 25 MG TABLET PO SCH (21:00)
[2021-03-11] MEDS: *HR* HYDROmorphone (PF) 1 MG/ML SYRINGE IVP PRN ×3 (03:50→13:02)
[2021-03-11] MEDS ORDERED: Ibuprofen 600 MG TABLET PO PRN (05:33)
[2021-03-11] MEDS: *HR* Heparin 5,000 UNIT/ML VIAL SQ SCH ×2 (06:14→17:59)
[2021-03-11] MEDS: Pantoprazole 40 MG VIAL IVP SCH ×2 (06:24→18:00)
[2021-03-11] MEDS: atenoloL 25 MG TABLET PO SCH ×2 (09:08→21:19)
[2021-03-11] MEDS: Aspirin Enteric Coated 81 MG Tablet PO SCH (09:08)
[2021-03-11] MEDS: Sucralfate 1 GM TABLET PO SCH ×4 (09:08→21:19)
[2021-03-11] MEDS: Ondansetron 4 MG/2 ML VIAL IVP PRN (09:16)
[2021-03-11] MEDS: Metoclopramide 10 MG/2 ML VIAL IVP SCH ×3 (10:41→17:59)
[2021-03-11] MEDS: Sennosides 8.6 MG TABLET PO SCH ×2 (13:02→21:19)
[2021-03-11] MEDS: Haloperidol Oral Conc 10 MG/5 ML UDC PO SCH ×2 (15:58→21:20)
[2021-03-11] MEDS: *HR* FentaNYL PATCH 25 MCG PATCH TD SCH (15:59)
[2021-03-12] MEDS: Metoclopramide 10 MG/2 ML VIAL IVP SCH ×5 (00:50→23:48)
[2021-03-12] MEDS: *HR* HYDROmorphone (PF) 1 MG/ML SYRINGE IVP PRN ×4 (00:50→19:59)
[2021-03-12] MEDS: Pantoprazole 40 MG VIAL IVP SCH ×2 (06:29→17:19)
[2021-03-12] MEDS: *HR* Heparin 5,000 UNIT/ML VIAL SQ SCH ×2 (06:30→17:20)
[2021-03-12 06:37] LABS: BUN/Creatinine Ratio 47 (6-26); Blood Urea Nitrogen 26 mg/dL (8-23); Calcium 8.7 mg/dL (8.6-10.3); Carbon Dioxide 32 mEq/L (23-29); Chloride 96 mEq/L (98-107); Glucose 80 mg/dL (70-105); Magnesium 1.7 mg/dL (1.6-2.6); Osmolality,Calculated 286 (280-300); Phosphorous 2.3 mg/dL (2.7-4.5); Sodium 136 mEq/L (136-145); eGFR For African Americans > 60 (> 60); eGFR For Non-African Americans > 60 (> 60)
[2021-03-12] MEDS: Ondansetron 4 MG/2 ML VIAL IVP PRN (08:31)
[2021-03-12] MEDS: Haloperidol Oral Conc 10 MG/5 ML UDC PO SCH ×3 (08:31→19:57)
[2021-03-12] MEDS: atenoloL 25 MG TABLET PO SCH ×2 (08:32→19:57)
[2021-03-12] MEDS: Aspirin Enteric Coated 81 MG Tablet PO SCH (08:32)
[2021-03-12] MEDS: Sucralfate 1 GM TABLET PO SCH ×4 (08:32→19:56)
[2021-03-12] MEDS: Sennosides 8.6 MG TABLET PO SCH ×2 (08:32→19:57)
[2021-03-13] MEDS: *HR* HYDROmorphone (PF) 1 MG/ML SYRINGE IVP PRN ×2 (01:16→06:09)
[2021-03-13] MEDS: Metoclopramide 10 MG/2 ML VIAL IVP SCH ×2 (06:07→12:25)
[2021-03-13] MEDS: Pantoprazole 40 MG VIAL IVP SCH (06:08)
[2021-03-13] MEDS: *HR* Heparin 5,000 UNIT/ML VIAL SQ SCH ×2 (06:08→17:43)
[2021-03-13] MEDS: Sucralfate 1 GM TABLET PO SCH ×4 (08:42→20:25)
[2021-03-13] MEDS: atenoloL 25 MG TABLET PO SCH ×2 (08:42→20:25)
[2021-03-13] MEDS: Sennosides 8.6 MG TABLET PO SCH ×2 (08:42→20:25)
[2021-03-13] MEDS: Haloperidol Oral Conc 10 MG/5 ML UDC PO SCH ×3 (08:43→20:24)
[2021-03-13] MEDS: Aspirin Enteric Coated 81 MG Tablet PO SCH (08:45)
[2021-03-13] MEDS ORDERED: *HR* HYDROmorphone (PF) 1 MG/ML SYRINGE IVP PRN (11:44)
[2021-03-13] MEDS ORDERED: Metoclopramide 10 MG/2 ML VIAL IVP PRN (13:18)
[2021-03-13] MEDS: Morphine Sulfate Immed Rel 15 MG TABLET PO PRN ×2 (16:14→20:25)
[2021-03-14] MEDS: Morphine Sulfate Immed Rel 15 MG TABLET PO PRN ×2 (04:19→18:43)
[2021-03-14] MEDS: *HR* Heparin 5,000 UNIT/ML VIAL SQ SCH ×2 (04:19→16:53)
[2021-03-14] MEDS: Haloperidol Oral Conc 10 MG/5 ML UDC PO SCH ×3 (08:59→21:26)
[2021-03-14] MEDS: Sucralfate 1 GM TABLET PO SCH ×4 (08:59→21:25)
[2021-03-14] MEDS: Aspirin Enteric Coated 81 MG Tablet PO SCH (08:59)
[2021-03-14] MEDS: polyethylene glycoL 3350 17 GM POWD.PACK PO SCH (09:00)
[2021-03-14] MEDS ORDERED: Pantoprazole 40 MG VIAL IVP SCH (09:00)
[2021-03-14] MEDS: Sennosides 8.6 MG TABLET PO SCH ×2 (09:01→21:25)
[2021-03-14] MEDS: atenoloL 25 MG TABLET PO SCH ×2 (09:21→21:25)
[2021-03-14] MEDS: *HR* FentaNYL PATCH 25 MCG PATCH TD SCH (14:18)
[2021-03-14] MEDS: Saliva Stimulant 44.3ml BOTTLE PO PRN (18:43)
[2021-03-15] MEDS: *HR* Heparin 5,000 UNIT/ML VIAL SQ SCH ×2 (05:56→16:09)
[2021-03-15] MEDS: Haloperidol Oral Conc 10 MG/5 ML UDC PO SCH ×3 (09:46→20:55)
[2021-03-15] MEDS: atenoloL 25 MG TABLET PO SCH ×2 (09:46→20:55)
[2021-03-15] MEDS: Sucralfate 1 GM TABLET PO SCH ×4 (09:46→20:55)
[2021-03-15] MEDS: Aspirin Enteric Coated 81 MG Tablet PO SCH (09:46)
[2021-03-15] MEDS: polyethylene glycoL 3350 17 GM POWD.PACK PO SCH (09:46)
[2021-03-15] MEDS: Sennosides 8.6 MG TABLET PO SCH ×2 (09:46→20:55)
[2021-03-15] MEDS: Saliva Stimulant 44.3ml BOTTLE PO PRN (09:48)
[2021-03-15] MEDS: Morphine Sulfate Immed Rel 15 MG TABLET PO PRN ×3 (09:56→20:54)
[2021-03-16] MEDS: *HR* Heparin 5,000 UNIT/ML VIAL SQ SCH (05:53)
[2021-03-16] MEDS: Morphine Sulfate Immed Rel 15 MG TABLET PO PRN ×4 (05:55→17:42)
[2021-03-16] MEDS: polyethylene glycoL 3350 17 GM POWD.PACK PO SCH (08:10)
[2021-03-16] MEDS: Haloperidol Oral Conc 10 MG/5 ML UDC PO SCH ×2 (08:11→15:40)
[2021-03-16] MEDS: Sucralfate 1 GM TABLET PO SCH ×2 (08:11→12:14)
[2021-03-16] MEDS: Aspirin Enteric Coated 81 MG Tablet PO SCH (08:11)
[2021-03-16] MEDS: Sennosides 8.6 MG TABLET PO SCH (08:11)
[2021-03-16] MEDS ORDERED: *HR* HYDROmorphone 2 MG/ML SYRINGE IVP ONE (08:30)
[2021-03-16] MEDS: atenoloL 25 MG TABLET PO SCH (09:16)
[2021-03-16 14:10] VITALS: BP 105/66
[2021-03-16 16:57] LABS: Adenovirus Not Detected (Not Detect); Bordetella Pertussis Not Detected (Not Detect); Chlamydophila pneumoniae Not Detected (Not Detect); Coronavirus 229E Not Detected (Not Detect); Coronavirus HKU1 Not Detected (Not Detect); Coronavirus NL63 Not Detected (Not Detect); Coronavirus OC43 Not Detected (Not Detect); Human Metapneumovirus Not Detected (Not Detect); Human Rhinovirus/Enterovirus Not Detected (Not Detect); Influenza A Subtype 2009 H1 Not Detected (Not Detect); Influenza B Not Detected (Not Detect); Mycoplasma pneumoniae Not Detected (Not Detect); Parainfluenza Virus 1 Not Detected (Not Detect); Parainfluenza Virus 2 Not Detected (Not Detect); Parainfluenza Virus 3 Not Detected (Not Detect); Parainfluenza Virus 4 Not Detected (Not Detect); Respiratory Syncytial Virus Not Detected (Not Detect); SARS-CoV-2 Not Detected (Not Detect)
[2021-03-16] MEDS ORDERED: Sennosides 8.6 MG TABLET PO SCH (21:00)
== END 2021-03-16 18:48 | DRG 374 ==
LOC: 3ANU 06:58 → ENDPAV 06:58 → SUATTDRO 11:34
PROVIDERS: ADMIT Internal Medicine; ATTEND Family Medicine
PROC: ENDOEBX (2021-03-09 08:00)